=== PATIENT | female | born 1985 | race Caucasian/White ===

== ENCOUNTER 2020-01-19 08:54 | Emergency (ER) | payer MEDICAID, SELFPAY ==
--- NOTE | ~2020-01-19 | XR_ITS ---
EXAMINATION: XR chest 1V INDICATION: Cough TECHNIQUE: PA COMPARISON: 03/06/2019 FINDINGS: There are minimal airspace opacities of the lung bases. No pleural effusion or pneumothorax is identified. The cardiomediastinal silhouette is normal. Contrast from earlier CT partially opacif ies the urinary tract. IMPRESSION: 1. Minimal bibasilar airspace opacity, consistent with atelectasis versus pneumonia. Reviewed, dictated and finalized at location A. IMPRESSION: 1. Minimal bibasilar airspace opacity, consistent with atelectasis versus pneum onia.
--- NOTE | ~2020-01-19 | CT_ITS ---
EXAMINATION: CT abdomen pelvis w con INDICATION: Lower abdominal pain TECHNIQUE: Computed tomographic images of the abdomen and pelvis were obtained after the administrati on of 100 cc of Omnipaque 350 intravenous contrast. The dose-length product (DLP) was 183.71 mGy-cm. Automated exposure control and iterative reconstruction technique were employed. COMPARISON: 03/07/2019 FINDINGS: There is a stable 8 mm nodule of the left lower lobe, likely old granulomatous disease. Pat dimitri groundglass opacities are present in the lower lobes, left greater than right. The liver, spleen, pancreas, gallbladder, and adrenal glands are normal. The kidneys are unremarkable. No pathologicall y enlarged abdominal or pelvic lymph nodes are identified. There is no free intraperitoneal gas or ev idence of bowel obstruction. IMPRESSION: 1. No CT correlate for the patient's symptoms. 2. Patchy groundglass opacities of the lower lobes, likely infectious or inflammatory. Reviewed, dictated and finalized at location A. IMPRESSION: 1. No CT correlate for the patient's symptoms. 2. Patchy groundglass opacities of the lower lobes, likely infectious or inflam matory.
[2020-01-19 08:57] VITALS: BP 133/94; PULSE 83; RESP 21; TEMP 36.9; O2SAT 97
[2020-01-19 09:21] LABS: Basophils Absolute Auto 0.1 K/mm3 (0.0-0.1); Basophils Percent Auto 0.5 % (0.2-1.2); Eosinophils Absolute Auto 0.3 K/mm3 (0-0.3); Eosinophils Percent Auto 2.6 % (0-4.4); Hematocrit 43.2 % (37.0-47.0); Hemoglobin 14.9 g/dL (12.0-15.0); Immature Granulocyte Absolute 0.03 K/mm3 (0.00-0.031); Immature Granulocyte Percent A 0.3 % (0-0.5); Lymphocytes Absolute Auto 4.54 K/mm3 (0.9-3.2); Lymphocytes Percent Auto 39.8 % (18.3-44.2); Mean Corpuscular HGB Conc 34.5 g/dl (32-36); Mean Corpuscular Hemoglobin 32.5 pg (26-34); Mean Corpuscular Volume 94.3 fl (80-100); Mean Platelet Volume 11.9 fl (7.4-10.4); Monocytes Absolute Auto 0.8 K/mm3 (0.1-0.6); Monocytes Percent Auto 7.4 % (2.6-8.5); Neutrophils Absolute Auto 5.6 K/mm3 (1.3-6.7); Neutrophils Percent Auto 49.4 % (45.5-73.1); Platelet Count Result 230 k/mm3 (150-375); Red Blood Count 4.58 M/mm3 (4.2-5.4); Red Cell Distribution Width 12.5 % (11.5-14.5); White Blood Count 11.4 K/mm3 (4.5-10.0)
[2020-01-19 09:33] LABS: Alanine Aminotransferase 24 U/L (4-35); Albumin Level 3.8 g/dL (3.5-5.1); Alkaline Phosphatase 107 U/L (38-126); Anion Gap 9.9 mmol/L (7-16); Aspartate Amino Transferase 48 U/L (14-36); Bilirubin,Total 0.7 mg/dL (0.2-1.3); Blood Urea Nitrogen 8 mg/dL (7-17); Calcium 8.9 mg/dL (8.4-10.2); Carbon Dioxide 29 mmol/L (22-30); Chloride 101 mmol/L (98-107); Estimated CRCL calculation 108 ml/min; Estimated Glomerular Filt Rate > 60; Glucose 101 mg/dL (65-105); Lipase 15 U/L (23-300); Potassium 2.9 mmol/L (3.4-5.0); Sodium 137 mmol/L (137-145)
--- NOTE | 2020-01-19 09:52 | PC.NURSE ---
Pt requesting water in order to provide U/A, discussed to remain NPO until testing back. Pt verbalized understanding. Will cont to try to void, declined straight cath at this time.
--- NOTE | 2020-01-19 09:57 | ED.ABDPAIN ---
HPI - Abdominal Pain General Chief Complaint: Abdominal Pain Stated Complaint: abd pain Time Seen by Provider: 01/19/20 09:30 Source: patient Mode of arrival: ambulatory Limitations: no limitations History of Present Illness HPI narrative: This patient is a 34 year old female who presents for evaluation of lower abdominal pain and difficulty urinating. Patient states she has long history of difficulty urinating. Over the past couple weeks she has intermittent lower abdominal pain but her pain has resolved at this moment. She reports lower abdominal pressure as if she need to urinate she has is unable. She was able to urinate this morning. She denies nausea, vomiting, back pain, diarrhea or fever. She also reports cough and congestion, so she wonders if she has bronchitis. Related Data Home Medications Medication Instructions Recorded Confirmed clonazepam 01/19/20 paroxetine HCl [Paxil] 20 mg PO QAM 01/19/20 quetiapine [Seroquel XR] 150 mg PO HS 01/19/20 Allergies Allergy/AdvReac Type Severity Reaction Status Date / Time prochlorperazine Allergy Intermediate Swelling Verified 01/19/20 09:02 trazodone Allergy Intermediate legs seize Verified 01/19/20 09:02 up Review of Systems Review of Systems: All systems reviewed & are unremarkable except as noted in HPI and below Constitutional: Constitutional: Denies chills and Denies fever(s) ENT: Reports nasal congestion Cardiovascular: Cardiovascular: Denies chest pain Respiratory: Respiratory: Reports cough and Reports wheezing Gastrointestinal: Gastrointestinal: Reports abdominal pain, Denies diarrhea, Denies nausea and Denies vomiting Genitourinary: Genitourinary: Reports urinary frequency and Reports nocturia Musculoskeletal: Musculoskeletal: Denies back pain [facility] Past Medical History Medical History (Updated 01/19/20 @ 11:40 by Agnes Hendrix MD) Bronchitis C. difficile colitis Surgical History Surgical History (Updated 01/19/20 @ 10:00 by Agnes Hendrix MD) No significant past surgical history Social History Social History (Updated 01/19/20 @ 10:00 by Agnes Hendrix MD) Smoking packs per day: 1 Smoking cigarettes per day: 20.0 Smoking status: Current every day smoker Gender identity (if verbalized by the patient): Female Exam Narrative: Exam Narrative: GENERAL: Well-appearing, well-nourished, and in no acute distress. HEAD: Normocephalic, atraumatic EYES: PERRLA and EOMI, conjunctiva clear without discharge THROAT:Mucous membranes moist, Oropharynx normal without erythema, exudate, peritonsillar swelling or fluctuance NECK: Supple, without lymphadenopathy or mass RESPIRATORY: No respiratory distress, Airway patent, Respirations non-labored, Clear to auscultation without rales, rhonchi or wheeze HEART: Regular rate and rhythm. No murmur heard. Normal peripheral pulses. ABDOMEN: Soft, bilateral lower abdominal tenderness, nondistended, normal active bowel sounds. No masses. No rebound or guarding, No organomegaly. EXTREMITIES: No edema, normal strength with full range of motion. SKIN: Warm, dry, normal color without rash NEURO: Alert and oriented x3. CN 2-12 grossly intact. No focal deficits. PSYCH: Normal mood and affect. Course Reevaluation(s) Reevaluation #1: I Discussed with patient that she will be started on antibiotics for UTI And pneumonia. She will also be swabbed for COVID. HEr PCP is a Dr. Quita Erickson. Patient is on seroquel and they recently increased her dose. I explained this may cause her urinary retention and she will decrease dose Date: 01/19/20 Time: 11:38 Vital Signs Vital signs: Vital Signs Temperature 98.5 F 01/19/20 08:57 Pulse Rate 83 01/19/20 08:57 Respiratory Rate 21 H 01/19/20 08:57 Blood Pressure 133/94 H 01/19/20 08:57 Pulse Oximetry 97 01/19/20 08:57 Temperature 98.5 F 01/19/20 08:57 Pulse Rate 85 01/19/20 12:23 Respiratory Rate 17
--- NOTE | 2020-01-19 10:44 | PC.NURSE ---
Pt to CT scan via stretcher.
[2020-01-19] MEDS: POTASSIUM CHLORIDE 20 MEQ PACKET (FOR LIQUID) 40 MEQ PO (10:46)
--- NOTE | 2020-01-19 10:46 | PC.NURSE ---
Pt trying to use RR again to provide urine sample, if unable to void will allow straight cath.
[2020-01-19] MEDS: ALBUTEROL SULFATE (*SP) AEROSOL 1 PUFF 2 PUFF INHALATION (10:59)
[2020-01-19 11:02] VITALS: BP 138/88; PULSE 91; RESP 17; O2SAT 100
[2020-01-19 11:26] LABS: Add Urine Microscopic? YES; Appearance Urine Clear (Clear); Bacteria Urine Trace /hpf; Bilirubin Urine Negative (Negative); Blood Urine Negative (Negative); Color Urine Yellow (Yellow); Glucose Urine UA Negative (Negative); Ketones Urine Negative (Negative); Leukocyte Esterase Ur 1+ LEU/UL (Negative); Nitrate Urine Positive (Negative); Protein Urine Negative (Negative); Specific Grav Ur 1.013 (1.001-1.035); Squamous Epithelial Cell Urine Occasional /hpf (Few); Transitional Epi Cells Urine Rare /hpf (None Seen); Urobilinogen Urine Negative mg/dL (<2.0)
[2020-01-19 12:23] VITALS: BP 150/87; PULSE 85; RESP 17; O2SAT 97
[2020-01-19 19:35] LABS: SARS-CoV-2 RNA PCR Negative
== END 2020-01-19 12:24 | disposition home or self-care (01) ==
PROVIDERS: Orthopaedic Surgery; Emergency Provider General Practice
DX: N39.0 Urinary tract infection, site not specified (principal); R33.9 Retention of urine, unspecified; J18.9 Pneumonia, unspecified organism; Z20.828 Contact with and (suspected) exposure to other viral communicable diseases; F17.210 Nicotine dependence, cigarettes, uncomplicated
CPT/HCPCS: 36415; 51701; 71045; 74177; 80053; 81001; 81025; 83690; 85025; 87077; 87086; 87088; 87186; 87635; 99284; A9270; C9803; Q9967; U0003

== ENCOUNTER 2020-03-01 09:50 | Emergency (ER) | payer MEDICAID, SELFPAY ==
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
[2020-03-01 09:59] VITALS: BP 111/68; PULSE 98; RESP 18; TEMP 36.4; O2SAT 96
--- NOTE | 2020-03-01 10:52 | PC.NURSE ---
PT IN RADIOLOGY WILL MEDICATE UPON RETURN PER PROVIDER ORDER, PT HAS ATTEMPTED UA PRIOR TO LEAVING, UNSUCCESSFUL, WILL ATTEMPT AGAIN UPON RETURN.
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
[2020-03-01] MEDS: KETOROLAC 30 MG/ML VIAL (*BKC) IM (11:11)
[2020-03-01 11:12] VITALS: BP 117/68; PULSE 78; RESP 16; O2SAT 100
[2020-03-01 12:05] VITALS: BP 110/64; PULSE 78; RESP 16; O2SAT 100
== END 2020-03-01 12:07 | disposition home or self-care (01) ==
PROVIDERS: Emergency Provider General Practice
DX: S60.221A Contusion of right hand, initial encounter (principal); S10.91XA Abrasion of unspecified part of neck, initial encounter; M25.462 Effusion, left knee; Y04.0XXA Assault by unarmed brawl or fight, initial encounter
CPT/HCPCS: 73130; 73562; 81025; 96372; 99284; J1885

== ENCOUNTER 2020-03-23 18:07 | Emergency (ER) | payer MEDICAID, SELFPAY ==
--- NOTE | 2020-03-23 18:33 | PC.NURSE ---
Pt to intake desk and states Ill come back tomorrow
== END 2020-03-23 18:33 | disposition left against medical advice (07) ==
LOC: ANHED 19:10
DX: Z53.21 Procedure and treatment not carried out due to patient leaving prior to being seen by health care provider (principal)
CPT/HCPCS: 99199

== ENCOUNTER 2020-09-19 13:43 | Emergency (ER) | payer MEDICAID, SELFPAY ==
--- NOTE | ~2020-09-19 | US_ITS ---
EXAMINATION: US right upper quadrant EXAM DATE: 09/19/2020 15:57 INDICATION: Transaminitis. TECHNIQUE: Multiple grayscale and Doppler images of the abdomen right upper quadrant were obtained (kenyatta y a technologist who performed the scan) and subsequently reviewed. There is no prior study for tatum colindres. FINDINGS: The pancreatic head and body are normal in appearance. The pancreatic tail is not visualized. There is echogenic liver parenchyma, hepatic steatosis. Small region focal fatty sparing in characteristi c location adjacent to gallbladder. There is no evidence of intrahepatic biliary duct dilation. Por adriana venous flow was seen in the hepatopedal, normal direction and has normal Doppler waveform. No ri ght-sided hydronephrosis. Common bile duct measures 6 mm, which is normal. Gallbladder is only mildly distended, with some gall bladder sludge but no cholelithiasis. Normal wall thickness and no pericholecystic fluid. Technologi st performing exam reports patient did not demonstrate sonographic Shore's sign. Please note that t his sign is less reliable in patients who have received pain medication. IMPRESSION: 1. Hepatic steatosis, focal fatty sparing. 2. Gallbladder sludge. Reviewed, dictated and finalized at location A.
[2020-09-19 13:48] VITALS: BP 114/94; PULSE 94; RESP 18; TEMP 36.1; O2SAT 98
[2020-09-19 14:01] LABS: Basophils Absolute Auto 0.1 K/mm3 (0.0-0.1); Basophils Percent Auto 0.8 % (0.2-1.2); Eosinophils Absolute Auto 0.1 K/mm3 (0-0.3); Eosinophils Percent Auto 0.5 % (0-4.4); Hematocrit 50.5 % (37.0-47.0); Hemoglobin 17.7 g/dL (12.0-15.0); Immature Granulocyte Absolute 0.05 K/mm3 (0.00-0.031); Immature Granulocyte Percent A 0.4 % (0-0.5); Lymphocytes Absolute Auto 3.55 K/mm3 (0.9-3.2); Lymphocytes Percent Auto 29.5 % (18.3-44.2); Mean Corpuscular Hemoglobin 33.6 pg (26-34); Mean Corpuscular Volume 95.8 fl (80-100); Mean Platelet Volume 11.4 fl (7.4-10.4); Monocytes Absolute Auto 0.6 K/mm3 (0.1-0.6); Monocytes Percent Auto 4.8 % (2.6-8.5); Neutrophils Absolute Auto 7.7 K/mm3 (1.3-6.7); Platelet Count Result 264 k/mm3 (150-375); Red Blood Count 5.27 M/mm3 (4.2-5.4); Red Cell Distribution Width 12.2 % (11.5-14.5)
[2020-09-19 14:12] LABS: Alanine Aminotransferase 272 U/L (4-35); Albumin Level 4.3 g/dL (3.5-5.1); Alkaline Phosphatase 198 U/L (38-126); Anion Gap 5 mmol/L (8-16); Aspartate Amino Transferase 252 U/L (14-36); Bilirubin,Total 1.3 mg/dL (0.2-1.3); Blood Urea Nitrogen 3 mg/dL (7-17); Calcium 9.3 mg/dL (8.4-10.2); Carbon Dioxide 30 mmol/L (22-30); Chloride 104 mmol/L (98-107); Estimated CRCL calculation 79 ml/min; Estimated Glomerular Filt Rate > 60; Glucose 126 mg/dL (65-105); Lipase 100 U/L (23-300); Potassium 3.9 mmol/L (3.4-5.0); Sodium 139 mmol/L (137-145)
[2020-09-19 15:32] VITALS: BP 128/87; PULSE 69; RESP 15; O2SAT 98
--- NOTE | 2020-09-19 15:40 | PC.NURSE ---
Unsuccessful IV attempt x 2, pt going to u/s at this time (via w/c).
--- NOTE | 2020-09-19 15:43 | ED.NAVMDI ---
HPI - Nausea/Vomiting/Diarrhea General Chief complaint: Nausea/Vomiting/Diarrhea Stated complaint: vomiting diarrhea Time Seen by Provider: 09/19/20 15:16 History of Present Illness HPI Narrative: Patient is a 35-year-old female who presents ER with nausea vomiting diarrhea. Ongoing over the last week. Associated black stools after drinking Pepto-Bismol. Diarrhea subsided but patient still having epigastric pain and nausea/vomiting. Denies fevers or chills or sweats. Had recently exited alcohol rehab. Has not been drinking alcohol. Cannot find any alleviating factors. Not particularly worsened by eating food. Related Data Home Medications Medication Instructions Recorded Confirmed clonazepam 01/19/20 paroxetine HCl [Paxil] 20 mg PO QAM 01/19/20 quetiapine [Seroquel XR] 150 mg PO HS 01/19/20 Allergies Allergy/AdvReac Type Severity Reaction Status Date / Time prochlorperazine Allergy Intermediate Swelling Verified 09/19/20 15:41 trazodone Allergy Intermediate legs seize Verified 09/19/20 15:41 up Review of Systems Review of Systems: All systems reviewed & are unremarkable except as noted in HPI and below Constitutional: Constitutional: Denies chills, Denies fever(s) and Denies weakness ENT: Denies nasal congestion and Denies sore throat Cardiovascular: Cardiovascular: Denies chest pain, Denies rapid heart rate and Denies radiating jaw, neck or arm pain Respiratory: Respiratory: Denies cough and Denies dyspnea Gastrointestinal: Gastrointestinal: Reports abdominal pain, Denies constipation, Reports diarrhea, Reports nausea and Reports vomiting Genitourinary: Genitourinary: Denies nocturia and Denies dysuria [facility] Past Medical History Medical History (Updated 09/19/20 @ 18:27 by Steve Tse MD) Bronchitis C. difficile colitis Hepatitis C Surgical History Surgical History (Updated 01/19/20 @ 10:00 by Agnes Hendrix MD) No significant past surgical history Social History Social History (Updated 01/19/20 @ 10:00 by Agnes Hendrix MD) Smoking packs per day: 1 Smoking cigarettes per day: 20.0 Smoking status: Current every day smoker Gender identity (if verbalized by the patient): Female Exam Narrative: Exam Narrative: GENERAL: Well-appearing, well-nourished, and in no acute distress. HEAD: Normocephalic, atraumatic. ENT: Mucous membranes moist. CHEST: Clear to auscultation. No respiratory distress. HEART: Regular rate and rhythm. Normal peripheral pulses. ABDOMEN: Soft, mild epigastric/RUQ tenderness without guarding, nondistended. Guaiac negative stool on RADHA and without gross blood. EXTREMITIES: Normal range of motion. No edema. SKIN: Warm, dry, no rash. NEURO: Alert and oriented x3. PSYCH: Normal mood and affect. Course Course Emergency Course: Hydrated. No emesis here. Discharge with antiemetics. Follow-up with PCP. [facility] may have to find somebody over there he takes that insurance as well. She is aware of this. Vital Signs Vital signs: Vital Signs Temperature 96.9 F L 09/19/20 13:48 Pulse Rate 94 09/19/20 13:48 Respiratory Rate 18 09/19/20 13:48 Blood Pressure 114/94 H 09/19/20 13:48 Pulse Oximetry 98 09/19/20 13:48 Temperature 96.9 F L 09/19/20 13:48 Pulse Rate 70 09/19/20 16:56 Respiratory Rate 17 09/19/20 16:56 Blood Pressure 129/84 09/19/20 16:56 Pulse Oximetry 98 09/19/20 16:56 MDM - Nausea/Vomiting/Diarrhea Lab Data Result diagrams: 09/19/20 13:55 09/19/20 13:55 Labs: Lab Results 09/19/20 09/19/20 Range/Units 13:55 13:55 WBC 12.0 H (4.5-10.0) K/mm3 RBC 5.27 (4.2-5.4) M/mm3 Hgb 17.7 H (12.0-15.0) g/dL Hct 50.5 H (37.0-47.0) % MCV 95.8 (80-100) fl MCH 33.6 (26-34) pg MCHC 35.0 (32-36) g/dl RDW 12.2 (11.5-14.5) % Plt Count 264 (150-375) k/mm3 MPV 11.4 H (7.4-10.4) fl Immature Gran % (Auto) 0.4 (
--- NOTE | 2020-09-19 15:45 | PC.NURSE ---
Called [facility]AL w/ vascular access, no answer at this time, did not leave VM.
[2020-09-19 15:46] VITALS: BP 128/87; PULSE 69; RESP 15; O2SAT 98
[2020-09-19] MEDS: MORPHINE SULFATE (*CRX) 4 MG/ML INJ IV PUSH (16:50)
[2020-09-19] MEDS: SODIUM CHLORIDE 0.9% IV 1,000 ML 999 ML IV CONT (16:50)
[2020-09-19] MEDS: ONDANSETRON INJ 4 MG/2 ML VIAL IV PUSH (16:50)
[2020-09-19 16:56] VITALS: BP 129/84; PULSE 70; RESP 17; O2SAT 98
--- NOTE | 2020-09-19 16:56 | PC.NURSE ---
Pt unable to urinate, declines straight cath, will cont to try, fluids infusing at this time.
[2020-09-19 18:25] VITALS: BP 130/89; PULSE 66; RESP 15; O2SAT 99
[2020-09-19 18:58] VITALS: BP 132/82; PULSE 74; RESP 15; O2SAT 97
== END 2020-09-19 18:59 | disposition home or self-care (01) ==
PROVIDERS: Emergency Provider Emergency Medicine
DX: K52.9 Noninfective gastroenteritis and colitis, unspecified (principal); F17.219 Nicotine dependence, cigarettes, with unspecified nicotine-induced disorders; Z86.19 Personal history of other infectious and parasitic diseases
CPT/HCPCS: 36415; 76705; 80053; 83690; 85025; 96361; 96374; 96375; 99284; J2270; J2405; J7030

== ENCOUNTER 2020-10-11 16:59 | Emergency (ER) | payer MEDICAID, SELFPAY ==
[2020-10-11 17:05] VITALS: BP 115/74; PULSE 75; RESP 18; TEMP 36.4; O2SAT 97
--- NOTE | 2020-10-11 17:29 | ED.SKABFB ---
HPI - Skin/Abscess/Foreign Bdy General Chief complaint: Skin/Abscess/Foreign Body Stated complaint: rash Source: patient and RN notes reviewed Limitations: no limitations History of Present Illness HPI narrative: The patient, who is a smoker/nondrinker, presents with several complaints. She notes about a 1 week history of urinary dysuria, urgency, and hesitancy-like prior urinary tract infection. No fever measured, vomiting/diarrhea, abdominal pain pain, vaginal discharge,frequency, blood , low back pain, malodor. Symptoms are mild most noticeable with micturition. She also mentions she has 1/2-week history of pink, pruritic skin eruption that began while doing yard cleanup. Symptoms are mild worse with scratching, resulting some excoriation on hands and chin. No streaking, discharge, known allergens Related Data Home Medications Medication Instructions Recorded Confirmed clonazepam 01/19/20 paroxetine HCl [Paxil] 20 mg PO QAM 01/19/20 quetiapine [Seroquel XR] 150 mg PO HS 01/19/20 Allergies Allergy/AdvReac Type Severity Reaction Status Date / Time prochlorperazine Allergy Intermediate Swelling Verified 09/19/20 15:41 trazodone Allergy Intermediate legs seize Verified 09/19/20 15:41 up Review of Systems Review of Systems: Narrative: General/Constitutional: No weight loss,fever Eyes: N0: Redness,discharge Ears/Nose/Throat: No: Epistaxis,ear discharge Respiratory: Denies: Hemoptysis Gastrointestinal: No Vomiting, Bleeding-rectal Skin: No Lumps, eruption Neurologic: No Focal Weakness,Sz Hematologic: Denies: Petechiae/Purpura Psychiatric: No: Suicida ideationl All Other Systems: Reviewed and Negative [facility] Past Medical History Medical History (Updated 10/11/20 @ 17:33 by Bernardo Jung MD) Bronchitis C. difficile colitis Hepatitis C Surgical History Surgical History (Updated 01/19/20 @ 10:00 by Agnes Hendrix MD) No significant past surgical history Social History Social History (Updated 01/19/20 @ 10:00 by Agnes Hendrix MD) Smoking packs per day: 1 Smoking cigarettes per day: 20.0 Smoking status: Current every day smoker Gender identity (if verbalized by the patient): Female Comments At time of signature, agree with nursing past medical, surgical, social and family history. There is no relevant family history pertinent to the presenting complaint Exam Narrative: Exam Narrative: General Appearance: Well appearing, No distress Skin: Warm, Dry; blanching mostly macular & maculopapular eruption on the distal forearms, proximal trunk and face EYE: PERRLA, Conjunctiva clear Ears: External ear normal Nose: Normal nose Mouth/Throat: Normal appearing, Normal lips Neck: Supple Respiratory: Airway patent, No respiratory distress GI: soft, nontender Abdomen: Soft, Non-tender, Musculoskeletal: Full ROM Neurological: A&O x3, CN II-X intact Psychiatric: Normal mood, Normal affect Course Vital Signs Vital signs: Vital Signs Temperature 97.6 F 10/11/20 17:05 Pulse Rate 75 10/11/20 17:05 Respiratory Rate 18 10/11/20 17:05 Blood Pressure 115/74 10/11/20 17:05 Pulse Oximetry 97 10/11/20 17:05 Temperature 97.6 F 10/11/20 17:05 Pulse Rate 75 10/11/20 17:05 Respiratory Rate 18 10/11/20 17:05 Blood Pressure 115/74 10/11/20 17:05 Pulse Oximetry 97 10/11/20 17:05 MDM - Skin/Abscess/Foreign Bdy Lab Data Labs: Urine Glucose Negative Reference Range: Negative Urine Bilirubin Negative Reference Range: Negative Urine Ketone Negative Reference Range: Negative Urine Specific [place] 1.010 Reference Range:1.001-1.035 Urine Blood
== END 2020-10-11 17:37 | disposition home or self-care (01) ==
PROVIDERS: Emergency Provider Emergency Medicine
DX: L25.5 Unspecified contact dermatitis due to plants, except food (principal); R30.0 Dysuria; Z86.19 Personal history of other infectious and parasitic diseases; F17.210 Nicotine dependence, cigarettes, uncomplicated
CPT/HCPCS: 81003; 99213; G0463

== ENCOUNTER 2020-11-14 16:04 | Emergency (ER) | payer MEDICAID, SELFPAY ==
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
[2020-11-14 16:19] VITALS: BP 121/96; PULSE 98; RESP 18; TEMP 36.8; O2SAT 95
== END 2020-11-14 16:28 | disposition home or self-care (01) ==
PROVIDERS: Emergency Provider Nurse Practitioner
DX: R51.9 Headache, unspecified (principal); F17.210 Nicotine dependence, cigarettes, uncomplicated; Z86.19 Personal history of other infectious and parasitic diseases
CPT/HCPCS: 99212; G0463

== ENCOUNTER 2021-06-24 10:04 | Emergency (ER) | payer MEDICAID, SELFPAY ==
[2021-06-24 10:44] VITALS: BP 116/81; PULSE 89; RESP 20; TEMP 36.3; O2SAT 96
--- NOTE | 2021-06-24 10:55 | ED.URI ---
HPI - URI/Sore Throat General Chief Complaint: Upper Respiratory Infection Stated Complaint: Rt ear pain,nasal congestion,throat irritation Time Seen by Provider: 06/24/21 10:55 Source: patient Mode of arrival: ambulatory Limitations: no limitations History of Present Illness HPI Narrative: María is a 35-year-old female [facility] Patient complains of right ear popping and feeling clogged. Patient complains of sore throat pain. Patient states this has been going on for 2 weeks. She also complains of mild nasal congestion that comes and goes. She is been taking [id number] sinus medication. She has no allergies. MD elicited complaint: sore throat Related Data Home Medications Medication Instructions Recorded Confirmed clonazepam 0.5 mg BID 01/19/20 06/24/21 quetiapine [Seroquel XR] 150 mg PO HS 01/19/20 06/24/21 escitalopram oxalate 20 mg DAILY 11/14/20 06/24/21 Allergies Allergy/AdvReac Type Severity Reaction Status Date / Time prochlorperazine Allergy Intermediate Swelling Verified 06/24/21 11:06 trazodone Allergy Intermediate legs seize Verified 06/24/21 11:06 up Review of Systems Review of Systems: CONSTITUTIONAL: Denies body aches, fever, chills, or sweats. EYES: Denies visual changes, redness, or discharge. ENT: Denies rhinorrhea,+ congestion+, sore throat, + right otalgia. CARDIOVASCULAR: Denies chest pain, palpitations, or edema. RESPIRATORY: Denies cough or dyspnea. GASTROINTESTINAL: Denies abdominal pain, nausea, vomiting, or diarrhea. GENITOURINARY: Denies dysuria or hematuria. SKIN: Denies rash, itching, or wounds. MUSCULOSKELETAL: Denies back pain, joint pain, or myalgia. NEUROLOGIC: Denies headache, numbness, tingling, or weakness. PSYCH: Denies depression or anxiety. All systems reviewed & are unremarkable except as noted in HPI and below PMFSH Past Medical History Medical History Bronchitis C. difficile colitis Hepatitis C Surgical History Surgical History No significant past surgical history Social History Social History Smoking packs per day: 1 Smoking cigarettes per day: 20.0 Smoking status: Current every day smoker Gender identity (if verbalized by the patient): Female Comments At time of signature, I have reviewed and agree with nursing past medical, surgical, social and family history unless otherwise noted. Please see nursing chart for further information. There is no relevant family history pertinent to the presenting complaint Exam Narrative: GENERAL: Well-appearing, well-nourished, and in no acute distress. HEAD: Normocephalic, atraumatic. EYES: EOMI. No redness or drainage. Conjunctivae normal. ENT: Mucous membranes pink and moist. Nares clear. No rhinorrhea. Right tympanic membrane is bulging without erythema. Left tympanic membrane has mild bulging no erythema. Posterior pharynx is erythemic without edema or exudate Uvula midline. NECK: Normal AROM. Supple. No lymphadenopathy. CHEST: No respiratory distress. Clear to auscultation. MUSCULOSKELETAL: No bony tenderness. EXTREMITIES: Normal range of motion. No edema. SKIN: Warm, dry, no rash. Capillary refill normal. Normal skin turgor. NEURO: No focal deficits. Alert and oriented x3. Gait steady. PSYCH: Normal affect. No signs of depression or anxiety. Course Course Emergency Course: Patient has a 2-week history of nasal congestion and sore throat pain. And right ear feeling like it is clogged with a popping sensation. A rapid strep test will be completed. Patient will be treated with a Sudafed-based stent and Flonase. Level of Care: Express Care Visit Vital Signs Vital signs: Vital Signs Temperature 36.3 C L 06/24/21 10:44 Pulse Rate 89 06/24/21 10:44 Respiratory Rate 20 01/0
== END 2021-06-24 11:20 | disposition home or self-care (01) ==
PROVIDERS: Emergency Provider Nurse Practitioner Family
DX: J02.9 Acute pharyngitis, unspecified (principal); F17.210 Nicotine dependence, cigarettes, uncomplicated; Z86.19 Personal history of other infectious and parasitic diseases
CPT/HCPCS: 87081; 87880; 99213; G0463

== ENCOUNTER 2021-12-08 12:37 | Emergency (ER) | payer MEDICAID, SELFPAY ==
[2021-12-08 13:02] VITALS: BP 120/80; PULSE 99; RESP 16; TEMP 37; O2SAT 94
--- NOTE | 2021-12-08 13:19 | ED.SOB ---
HPI - SOB/Dyspnea General Chief Complaint: Urogenital-Female Stated Complaint: SOB Source: patient Mode of arrival: ambulatory Limitations: no limitations History of Present Illness HPI Narrative: 36 year old female presents to [facility] with complaints of shortness of breath and productive cough X 1 week. Patient reports that she also is having difficulty urinating at times. Patient is a smoker, patient reports that she smokes approximately1 pack/week. Patient reports that she recently was discharged from [facility] for alcohol detox. Patient reports that she did have 2 drinks of twisted tea yesterday and 1 drink of twisted tea today. Patient denies drug use. Patient reports that she is currently being worked up for possible leukemia and they are attempting to schedule her appointment with hematology. Patient reports history of chronic bronchitis. Patient denies sick contacts. Patient denies recent travel. Patient denies nausea, vomiting, diarrhea, sore throat or ear pain. MD elicited complaint: shortness of breath and cough Pertinent past history: other (chronic bronchitis ) Onset (ago): week(s) (1) Relieving factors: nothing Treatment prior to arrival: none Related Data Home Medications Medication Instructions Recorded Confirmed clonazepam 0.5 mg tablet 0.5 mg BID 01/19/20 06/24/21 quetiapine 150 mg tablet,extended 150 mg PO HS 01/19/20 06/24/21 release 24 hr (Seroquel XR) escitalopram oxalate 20 mg tablet 20 mg DAILY 11/14/20 06/24/21 Allergies Allergy/AdvReac Type Severity Reaction Status Date / Time prochlorperazine Allergy Intermediate Swelling Verified 06/24/21 11:06 trazodone Allergy Intermediate legs seize Verified 06/24/21 11:06 up Review of Systems Constitutional: Constitutional: Denies chills, Denies fatigue, Denies fever(s) and Denies weakness ENT: Denies vertigo and Denies dizziness Cardiovascular: Cardiovascular: Denies chest pain, Denies rapid heart rate, Denies radiating jaw, neck or arm pain and Denies slow heart rate Respiratory: Respiratory: Denies chest congestion, Reports cough, Reports dyspnea and Denies wheezing Gastrointestinal: Gastrointestinal: Denies abdominal pain, Denies diarrhea, Denies nausea and Denies vomiting Integumentary/Breasts: Skin/Breast: Denies rash Neurologic: Denies dizziness, Denies numbness and Denies weakness [facility] Past Medical History Medical History Bronchitis C. difficile colitis Hepatitis C Surgical History Surgical History No significant past surgical history Social History Social History Smoking packs per day: 1 Smoking cigarettes per day: 20.0 Smoking status: Current every day smoker Gender identity (if verbalized by the patient): Female Comments At time of signature, I agree with nursing past medical, surgical, social and family history. There is no relevant family history pertinent to the presenting complaint. Exam Const: Orientation/consciousness: patient oriented x3 Other: Patient tearful at times, tremoring noted to hands, gait appears unsteady at times, patient appears intoxicated Eyes: Other: Mild erythema noted to bilateral conjunctive eye Neck: Neck: normal visual inspection Resp: Effort & Inspection: normal respiratory effort and not labored Auscultation: clear to auscultation bilaterally, no crackles, no rales and no rhonchi Other: Occasional wet cough noted, lungs are clear. No dyspnea noted; pulse ox ranging from 86-94% Cardio: Rate: regular rate Rhythm: regular rhythm GI: Inspection: distended GI Palp: Yes Soft to palpation Back/Spine/Pelvis: Back: no CVA tenderness Skin: General skin exam: normal color Rashes: no rashes Wounds: no wounds Neuro: General: patient oriented x3 and moves all extremities Cranial nerves: Yes [place]
== END 2021-12-08 13:14 | disposition short-term general hospital (02) ==
PROVIDERS: Emergency Provider Nurse Practitioner Family
DX: R79.81 Abnormal blood-gas level (principal); R06.00 Dyspnea, unspecified; Z20.822 Contact with and (suspected) exposure to COVID-19; F17.210 Nicotine dependence, cigarettes, uncomplicated; Z86.19 Personal history of other infectious and parasitic diseases
CPT/HCPCS: 81003; 81025; 87426; 99215; C9803; G0463

== ENCOUNTER 2021-12-08 13:38 | Inpatient (IN) | payer MEDICAID, SELFPAY ==
[2021-12-08] VITALS (12 sets, daily range): BP systolic 90–110; BP diastolic 67–73; PULSE 65–92; RESP 14–19; TEMP 36.6–37; O2SAT 89–98; BMI 23.0
--- NOTE | ~2021-12-08 | XR_ITS ---
EXAMINATION: XR chest 1V portable INDICATION: Cough and shortness of breath TECHNIQUE: Portable AP chest at 1436 hours COMPARISON: None available FINDINGS: There are airspace opacities of the lung bases and left midlung zone. No pleural effusion o r pneumothorax. The cardiomediastinal silhouette is normal. IMPRESSION: 1. Airspace opacities of the lung bases and left midlung zone suspicious for pneumonia, possible COVI D 19. Reviewed, dictated and finalized at location F. IMPRESSION: 1. Airspace opacities of the lung bases and left midlung zone suspicious for pn eumonia, possible COVID 19.
[2021-12-08 14:40] LABS: Basophils Absolute Auto 0.1 K/mm3 (0.0-0.1); Basophils Percent Auto 0.4 % (0.2-1.2); Eosinophils Absolute Auto 0.3 K/mm3 (0-0.3); Eosinophils Percent Auto 2.4 % (0-4.4); Hematocrit 44.5 % (37.0-47.0); Hemoglobin 15.4 g/dL (12.0-15.0); Immature Granulocyte Absolute 0.05 K/mm3 (0.00-0.031); Immature Granulocyte Percent A 0.4 % (0-0.5); Lymphocytes Absolute Auto 2.99 K/mm3 (0.9-3.2); Lymphocytes Percent Auto 22.1 % (18.3-44.2); Mean Corpuscular HGB Conc 34.6 g/dl (32-36); Mean Corpuscular Hemoglobin 33.3 pg (26-34); Mean Corpuscular Volume 96.1 fl (80-100); Mean Platelet Volume 11.7 fl (7.4-10.4); Monocytes Absolute Auto 0.5 K/mm3 (0.1-0.6); Monocytes Percent Auto 3.7 % (2.6-8.5); Neutrophils Absolute Auto 9.6 K/mm3 (1.3-6.7); Platelet Count Result 173 k/mm3 (150-375); Red Blood Count 4.63 M/mm3 (4.2-5.4); White Blood Count 13.6 K/mm3 (4.5-10.0)
[2021-12-08 14:54] LABS: Alanine Aminotransferase 41 U/L (6-35); Albumin Level 3.7 g/dL (3.5-5.1); Alkaline Phosphatase 120 U/L (38-126); Anion Gap 6 mmol/L (8-16); Aspartate Amino Transferase 78 U/L (14-36); Bilirubin,Total 0.9 mg/dL (0.2-1.3); Blood Urea Nitrogen 4 mg/dL (7-17); Carbon Dioxide 31 mmol/L (22-30); Chloride 99 mmol/L (98-107); Estimated CRCL calculation 106 ml/min; Estimated Glomerular Filt Rate > 60; Glucose 95 mg/dL (65-110); INR 1.1; Potassium 3.4 mmol/L (3.4-5.0); Prothrombin Time 13.8 Seconds (11.1-14.7); Sodium 136 mmol/L (137-145)
--- NOTE | 2021-12-08 14:54 | ED.GENADULT ---
HPI - General Adult General Chief complaint: Upper Respiratory Infection Stated complaint: SOB Time Seen by Provider: 12/08/21 13:47 History of Present Illness HPI narrative: Patient is a 36-year-old female who presents ER with shortness of breath and cough. Reports ongoing for 1 week. Reports thick mucus that comes up. Reports vaccinated against COVID. No known sick contacts but recently in alcohol detox at [place]. Reports body aches. No fevers or chills. Patient found to be hypoxic at urgent care and referred here. Patient reports exertional dyspnea and has trouble getting around her home due to this. No recent vomiting. Denies possible aspiration risk. Related Data Home Medications Medication Instructions Recorded Confirmed clonazepam 0.5 mg tablet 0.5 mg PO BID 01/19/20 12/08/21 escitalopram oxalate 20 mg tablet 20 mg PO DAILY 11/14/20 12/08/21 quetiapine 100 mg tablet 100 mg PO HS 12/08/21 12/08/21 Allergies Allergy/AdvReac Type Severity Reaction Status Date / Time prochlorperazine Allergy Intermediate Swelling Verified 12/08/21 18:27 trazodone Allergy Intermediate legs seize Verified 12/08/21 18:27 up haloperidol [From Haldol] Allergy Swelling Verified 12/08/21 18:27 of Lip/Tongue/Throat Review of Systems Review of Systems: All systems reviewed & are unremarkable except as noted in HPI and below Constitutional: Constitutional: Denies chills, Reports fatigue and Reports weakness Cardiovascular: Cardiovascular: Denies chest pain, Denies rapid heart rate and Denies radiating jaw, neck or arm pain Respiratory: Respiratory: Reports cough, Reports dyspnea and Denies wheezing Gastrointestinal: Gastrointestinal: Denies abdominal pain, Denies nausea and Denies vomiting Genitourinary: Genitourinary: Denies nocturia and Denies dysuria Musculoskeletal: Musculoskeletal: Reports myalgias, Denies arthralgias and Denies joint swelling Neurologic: Denies headache(s), Denies focal weakness and Denies numbness PMFSH Past Medical History Medical History (Updated 12/11/21 @ 07:11 by Steve Tse MD) Alcohol abuse Bloating Bronchitis C. difficile colitis Constipation Hepatitis C Nicotine dependence Surgical History Surgical History No significant past surgical history Family History Family History Other No significant family history Social History Social History (Updated 12/08/21 @ 19:21 by Lu Ramires PA-C) Social History: Surrogate decision maker: Stacy Herrera, grandmother. Code status: Full code. Smoking packs per day: 1 Smoking cigarettes per day: 20.0 Years smoked: 26 Smoking pack-years: 26.00 Smoking status: Current every day smoker Tobacco type: cigarettes Alcohol intake: current Drinks per week: 3 Substance use: former Spiritual care concerns: No Exam Narrative: GENERAL: Well-appearing, well-nourished, and in no acute distress. HEAD: Normocephalic, atraumatic. ENT: Mucous membranes moist. CHEST: Clear to auscultation. No respiratory distress. Frequent coughing. HEART: Regular rate and rhythm. Normal peripheral pulses. ABDOMEN: Soft, nontender, nondistended. EXTREMITIES: Normal range of motion. No edema. SKIN: Warm, dry, no rash. NEURO: Alert and oriented x3. PSYCH: Normal mood and affect. Course Vital Signs Vital signs: Vital Signs Temperature 98.6 F 12/08/21 13:46 Pulse Rate 92 12/08/21 13:46 Respiratory Rate 18 12/08/21 13:46 Blood Pressure 90/73 L 12/08/21 13:46 Pulse Oximetry 95 12/08/21 13:46 Oxygen Delivery Room Air 12/08/21 13:46 Temperature 97.5 F L 12/09/21 05:40 Pulse Rate 70 12/09/21 13:32 Respiratory Rate 16 12/09/21 13:32 Blood Pressure 99/67 L 12/09/21 05:40 Pulse Oximetry 95 12/09/21 13:22 Oxygen Delivery Room Air 12/09/21 13:22 Oxygen Flow Rate
[2021-12-08 14:55] LABS: Partial Thromboplastin Time 33.9 SECONDS (22.3-36.8)
[2021-12-08 14:57] LABS: D Dimer 1.32 ug/mL (<0.48); Lactic Acid Reflex 1.3 mmol/L (0.7-2.0)
[2021-12-08 14:59] LABS: Ethanol < 10 mg/dL (<10)
[2021-12-08 15:09] LABS: NT Pro B Type Natriuretic Pept 1160 pg/mL (5-100); Troponin I < 0.012 ng/mL (0.000-0.034)
[2021-12-08 15:20] LABS: Influenza A QL RT-PCR Negative (Negative); Influenza B QL RT-PCR Negative (Negative); SARS-CoV-2 RNA PCR Negative
[2021-12-08] MEDS: KETOROLAC 30 MG/ML VIAL (*BKC) IV PUSH (15:33)
[2021-12-08] MEDS: SODIUM CHLORIDE 0.9% IV 1,000 ML 125 ML IV CONT (16:50)
--- NOTE | 2021-12-08 17:02 | PC.NURSE ---
report called and given to sierra
[2021-12-08 17:30] LABS: Amphetamine Screen Urine Negative (Negative); Barbiturate Screen Urine Negative (Negative); Benzodiazepines Screen Urine Positive (Negative); Cannabinoid Screen Urine Negative (Negative); Cocaine Screen Urine Negative (Negative); Methadone Screen Urine Negative (Negative); Opiate Screen Urine Negative (Negative); Phencyclidine Screen Urine Negative (Negative)
--- NOTE | 2021-12-08 17:33 | ADMGEN ---
This patient, María Painter, was admitted to [facility] Surg Room 329-01 at 1725. Patient/family oriented to hospital policies and general routines including ID bracelet, bed and alarms, visiting hours, pain management, procedures, bathroom and other care routines, personal items, smoking policy, room service/diet, and visiting hours. Information on how to activate the Rapid Response Team has been discussed. Patient/Family are encouraged to report perceived risks to care and to ask questions if they do not understand what they are told or what they should do.
--- NOTE | 2021-12-08 17:45 | PM.IMHP ---
H&P: HPI History of Present Illness Date/Time: 12/08/21 17:45 Chief Complaint: Cough and shortness of breath. Narrative: This is a 36-year-old female smoker with history of alcohol abuse, asthma, mitral valve prolapse, borderline personality disorder, anxiety, and depression who presented to the emergency department for evaluation of cough and shortness of breath. She has not been feeling well for approximately 1 week with sweats, body aches, cough productive of rust-colored sputum, and pleuritic pain. She has coughed so hard a couple of times that she briefly lost consciousness. Over the last couple of days she has been feeling short of breath as well and she came in today because she is not feeling any better. Last week some of her coworkers were complaining of sore throats but they do not have similar symptoms to her, reportedly. She is vaccinated for COVID and she tested negative for influenza and SARs CoV 2 by PCR today in the ER. Chest x-ray showed airspace opacities of the lung bases and left midlung zone suspicious for pneumonia and she is being admitted in this setting as she does have an oxygen requirement currently. She denies sinus congestion, sore throat, change in smell and taste, exertional chest pain, nausea, vomiting, dysphagia, concerns for aspiration, and diarrhea. Of note she was recently in an inpatient rehab facility for alcohol abuse though unfortunately she has been drinking small amounts since then. She denies withdrawal signs and symptoms. Review of Systems Review of Systems: Twelve systems were reviewed and are negative except for as per HPI. [facility] Past Medical History Medical History (Updated 12/08/21 @ 19:37 by Lu Ramires PA-C) Alcohol abuse Bronchitis C. difficile colitis Hepatitis C Nicotine dependence Surgical History Surgical History No significant past surgical history Family History Family History Other No significant family history Social History Social History (Updated 12/08/21 @ 19:21 by Lu Ramires PA-C) Social History: Surrogate decision maker: Stacy Javier, grandmother. Code status: Full code. Smoking packs per day: 1 Smoking cigarettes per day: 20.0 Years smoked: 26 Smoking pack-years: 26.00 Smoking status: Current every day smoker Tobacco type: cigarettes Alcohol intake: current Drinks per week: 3 Substance use: former Spiritual care concerns: No Meds Home Medications and Allergies Home Medications Medication Instructions Recorded Confirmed Type clonazepam 0.5 mg tablet 0.5 mg PO BID 01/19/20 12/08/21 History escitalopram oxalate 20 mg tablet 20 mg PO DAILY 11/14/20 12/08/21 History quetiapine 100 mg tablet 100 mg PO HS 12/08/21 12/08/21 History Allergies Allergy/AdvReac Type Severity Reaction Status Date / Time prochlorperazine Allergy Intermediate Swelling Verified 12/08/21 18:27 trazodone Allergy Intermediate legs seize Verified 12/08/21 18:27 up haloperidol [From Haldol] Allergy Swelling Verified 12/08/21 18:27 of Lip/Tongue/Throat Vital Signs Vital Signs - 24 hr 12/08/21 13:46 12/08/21 14:10 12/08/21 14:18 Temperature 98.6 F Pulse Rate 92 87 Respiratory Rate 18 19 Blood Pressure 90/73 L 110/70 Pulse Oximetry 95 92 89 L Oxygen Delivery Room Air Room Air Oxygen Flow Rate 12/08/21 16:11 12/08/21 14:20 Temperature Pulse Rate 75 Respiratory Rate 18 Blood Pressure 102/67 Pulse Oximetry 95 95 Oxygen Delivery Nasal Cannula Oxygen Flow Rate 2 Exam Narrative: General: Mildly ill-appearing female sitting up in bed. Weight: 58.9 kg. BMI: 23.0. HEENT: Normocephalic, atraumatic. PERRL, EOMI. Sclerae anicteric. Conjunctiva mildly injected. Tacky mucous membranes. Oropharynx is clear. Neck: Supple. No lymphadenopathy. Respiratory: Respirations are
[2021-12-08] MEDS: HYDROcodone/acetaminophen (*CRX) 5-325 MG TABLET 1 TAB PO (18:58)
[2021-12-08] MEDS: IPRATROPIUM BR 0.02% INH SOLN 0.5 MG/2.5 ML VIAL INHALATION (20:54)
[2021-12-08] MEDS: ALBUTEROL SULFATE NEB 2.5 MG/3 ML INH 5 MG INHALATION (20:54)
[2021-12-08] MEDS: THIAMINE HCL 200 MG/2 ML VIAL 100 MG IV PUSH (21:20)
[2021-12-08] MEDS: QUEtiapine FUMARATE 100 MG TABLET PO (21:21)
[2021-12-08] MEDS: clonazePAM (*CRX) 0.5 MG TABLET PO (21:21)
[2021-12-08] MEDS: KETOROLAC 15 MG/ML VIAL (*BKC) IV PUSH (21:24)
[2021-12-09] VITALS (9 sets, daily range): BP systolic 99; BP diastolic 67; PULSE 64–72; RESP 14–18; TEMP 36.4; O2SAT 95–96
[2021-12-09] MEDS: NICOTINE (*PBKC) 21 MG PATCH 1 PATCH TRANSDERM (00:14)
[2021-12-09] MEDS: ALBUTEROL SULFATE NEB 2.5 MG/3 ML INH 5 MG INHALATION ×3 (02:13→13:21)
[2021-12-09] MEDS: IPRATROPIUM BR 0.02% INH SOLN 0.5 MG/2.5 ML VIAL INHALATION ×3 (02:16→13:21)
[2021-12-09 06:32] LABS: Hematocrit 41.4 % (37.0-47.0); Hemoglobin 13.8 g/dL (12.0-15.0); Immature Platelet Fraction Pct 10.7 % (0.9-11.2); Mean Corpuscular HGB Conc 33.3 g/dl (32-36); Mean Platelet Volume 11.7 fl (7.4-10.4); Platelet Count Result 139 k/mm3 (150-375); Red Blood Count 4.18 M/mm3 (4.2-5.4); White Blood Count 7.7 K/mm3 (4.5-10.0)
[2021-12-09] MEDS: KETOROLAC 15 MG/ML VIAL (*BKC) IV PUSH ×2 (06:38→12:43)
[2021-12-09 06:47] LABS: Alanine Aminotransferase 32 U/L (6-35); Albumin Level 2.8 g/dL (3.5-5.1); Alkaline Phosphatase 88 U/L (38-126); Anion Gap 6 mmol/L (8-16); Aspartate Amino Transferase 63 U/L (14-36); Bilirubin,Total 0.6 mg/dL (0.2-1.3); Blood Urea Nitrogen 6 mg/dL (7-17); Calcium 7.8 mg/dL (8.4-10.2); Carbon Dioxide 27 mmol/L (22-30); Chloride 102 mmol/L (98-107); Estimated CRCL calculation 120 ml/min; Estimated Glomerular Filt Rate > 60; Glucose 105 mg/dL (65-110); Magnesium 1.8 mg/dL (1.6-2.3); Potassium 2.8 mmol/L (3.4-5.0); Sodium 135 mmol/L (137-145)
[2021-12-09] MEDS: POTASSIUM CHLORIDE INJ 40 MEQ in SODIUM CHLORIDE 0.9% IV 500 ML 130 MEQ IVPB (07:15)
[2021-12-09] MEDS: ACETAMINOPHEN 325 MG TABLET 650 MG PO (08:17)
[2021-12-09] MEDS: ESCITALOPRAM OXALATE 10 MG TABLET 20 MG PO (08:20)
[2021-12-09] MEDS: THIAMINE HCL 100 MG TABLET PO (08:20)
[2021-12-09] MEDS: THERAPEUTIC MULTIVITAMINS/MINERALS TAB (*BKC) 1 TABLET PO (08:21)
[2021-12-09] MEDS: FOLIC ACID 1 MG TABLET PO (08:21)
[2021-12-09] MEDS: clonazePAM (*CRX) 0.5 MG TABLET PO (08:24)
[2021-12-09] MEDS: chlordiazePOXIDE (*CRX) 25 MG CAPSULE PO (11:48)
[2021-12-09] MEDS: LORazepam INJ (*CRX) 2 MG/ML VIAL 1 MG IV PUSH (14:03)
--- NOTE | 2021-12-09 14:22 | PM.IMPN ---
Progress Note: A&P Assessment and Plan (1) Pneumonia: Code(s): J18.9 - Pneumonia, unspecified organism Status: Acute Assessment and Plan: Presumed bacterial, community-acquired pneumonia. Influenza and COVID test were negative. Continue azithromycin and ceftriaxone. Send sputum for culture. Check urine for Legionella pneumococcal antigens. 12/09/2021 interval history: patient is a 36-year-old female with history of alcohol abuse presented with persistent cough shortness of breath chest x-ray suspicious for pneumonia, patient is being treated for community-acquired pneumonia with ceftriaxone and azithromycin I suspect patient has aspiration pneumonia patient had been coughing and vomiting, stop the ceftriaxone and start the patient on Unasyn and continue azithromycin, patient states her loss drink was day before coming to emergency depart patient has high risk of DT will place the patient on Librium and CIWA protocol to monitor, there was also concern patient had hematemesis with history of alcohol abuse will consult GI for further recommend, patient with a hypokalemia hypomagnesemia secondary to alcohol abuse will monitor and supplement. (2) Hypoxia: Code(s): R09.02 - Hypoxemia Status: Acute Assessment and Plan: Related to pneumonia. Wean oxygen as tolerated. (3) Elevated LFTs: Code(s): R79.89 - Other specified abnormal findings of blood chemistry Status: Acute Assessment and Plan: She has a history of hepatitis C though may be related to infection. Abdominal exam is benign. Monitor. (4) Nicotine dependence: Code(s): F17.200 - Nicotine dependence, unspecified, uncomplicated Status: Acute Assessment and Plan: Nicotine patch available per patient request. (5) Alcohol abuse: Code(s): F10.10 - Alcohol abuse, uncomplicated Status: Acute Assessment and Plan: Recently completed inpatient rehab though she has had several drinks here and there the last couple of weeks. Initiate CIWA protocol. Start thiamine and folic acid supplementation. Subjective Date/time seen: 12/09/21 14:22 This is a 36-year-old female smoker with history of alcohol abuse, asthma, mitral valve prolapse, borderline personality disorder, anxiety, and depression who presented to the emergency department for evaluation of cough and shortness of breath. She has not been feeling well for approximately 1 week with sweats, body aches, cough productive of rust-colored sputum, and pleuritic pain. She has coughed so hard a couple of times that she briefly lost consciousness. Over the last couple of days she has been feeling short of breath as well and she came in today because she is not feeling any better. Last week some of her coworkers were complaining of sore throats but they do not have similar symptoms to her, reportedly. She is vaccinated for COVID and she tested negative for influenza and SARs CoV 2 by PCR today in the ER. Chest x-ray showed airspace opacities of the lung bases and left midlung zone suspicious for pneumonia and she is being admitted in this setting as she does have an oxygen requirement currently. She denies sinus congestion, sore throat, change in smell and taste, exertional chest pain, nausea, vomiting, dysphagia, concerns for aspiration, and diarrhea. Of note she was recently in an inpatient rehab facility for alcohol abuse though unfortunately she has been drinking small amounts since then. She denies withdrawal signs and symptoms. 12/09/2021 interval history: patient is a 36-year-old female with history of alcohol abuse presented with persistent cough shortness of breath chest x-ray suspicious for pneumonia, patient is being treated for community-acquired pneumonia with ceftriaxone and azithromycin I suspect patient has aspiration pneumonia patient had been coughing and vomiting, stop the ceftriaxone and start the patient on Unasyn and continue azithromycin
--- NOTE | 2021-12-09 14:25 | WPDGICN ---
Assessment and Plan Assessment and plan (1) Bloating: Code(s): R14.0 - Abdominal distension (gaseous) Status: Acute Assessment and Plan: chronic and unchanged I can do EGD as outpatient, she is quite anxious about appearance of her abdomen but this is unchanged and exam is benign will follow from afar, call if questions (2) Constipation: Code(s): K59.00 - Constipation, unspecified Status: Acute Assessment and Plan: she never had a colonoscopy- will do one as outpatient after she is fully recovered from pneumonia (3) Hepatitis C: Code(s): B19.20 - Unspecified viral hepatitis C without hepatic coma Status: Acute Assessment and Plan: she says that has an appointment coming up at [facility] to see hepatology she is treatment naive and diagnosed long time ago we can repeat HCV RNA and genotype (4) Alcohol abuse: Code(s): F10.10 - Alcohol abuse, uncomplicated Status: Acute Assessment and Plan: thiamine, monitor (5) Elevated LFTs: Code(s): R79.89 - Other specified abnormal findings of blood chemistry Status: Acute Assessment and Plan: mild elevated also from HCV (6) Pneumonia: Code(s): J18.9 - Pneumonia, unspecified organism Status: Acute Assessment and Plan: on antibiotic GI Consult Note Consult date/time: 12/09/21 14:25 Reason for consult: bloating, hepatitis c HPI: María Painter is a 36 year old female with history of alcohol abuse, asthma, mitral valve prolapse, borderline personality disorder, anxiety, depression, former drug abuse and chronic HCV but treatment naive. She came to the emergency department for evaluation of cough and shortness of breath, she has been sick for almost a week with sweats, body aches, productive cough and pleuritic pain. She is vaccinated for COVID and she tested negative for influenza and SARs CoV 2 by PCR. Chest x-ray showed airspace opacities of the lung bases and left midlung zone suspicious for pneumonia, started on antibiotics, feeling ok now. She also says that for last 4 yeas or so after she had episode of C diff has persistent bloating and abdominal discomfort, now actually she has constipation and using stool softeners at home, Never had scopes. AST 63, other liver enzymes normal. Review of Systems Review of Systems: All systems reviewed & are unremarkable except as noted in HPI and below Constitutional: Constitutional: Denies chills, Reports fatigue and Reports weakness Eyes: Eyes: Denies blurry vision ENT: Reports Normal hearing present Cardiovascular: Cardiovascular: Denies chest pain, Denies rapid heart rate and Denies radiating jaw, neck or arm pain Respiratory: Respiratory: Reports cough, Reports dyspnea and Denies wheezing Gastrointestinal: Gastrointestinal: Denies abdominal pain, Denies nausea and Denies vomiting Genitourinary: Genitourinary: Denies nocturia and Denies dysuria Musculoskeletal: Musculoskeletal: Reports myalgias, Denies arthralgias and Denies joint swelling Neurologic: Denies headache(s), Denies focal weakness and Denies numbness Psychiatric: Psychiatric: Reports anxiety [facility] Past Medical History Medical History (Updated 12/09/21 @ 14:30 by Victor M Garrett MD) Alcohol abuse Bloating Bronchitis C. difficile colitis Constipation Hepatitis C Nicotine dependence Surgical History Surgical History No significant past surgical history Family History Family History Other No significant family history Social History Social History (Updated 12/08/21 @ 19:21 by Lu Ramires PA-C) Social History: Surrogate decision maker: Stacy Herrera, grandmother. Code status: Full code. Smoking packs per day: 1 Smoking cigarettes per day: 20.0 Years smoked: 26 Smoking pack-years: 26.00 Sm
[2021-12-12 16:48] LABS: Pneumococcal Antigen Urine Not Detected (Not Detected)
[2021-12-13 07:03] LABS: Legionella pneumophila Ag Ur Not Detected (Not Detected)
--- NOTE | 2022-01-08 17:31 | PM.DS ---
DS: Admitting Diagnosis Discharge Date 12/09/21 Admitting Diagnosis shortness of breath DS: Discharge Diagnosis Discharge Diagnosis (1) Pneumonia: Code(s): J18.9 - Pneumonia, unspecified organism Status: Acute Assessment and Plan: Presumed bacterial, community-acquired pneumonia. Influenza and COVID test were negative. Continue azithromycin and ceftriaxone. Send sputum for culture. Check urine for Legionella pneumococcal antigens. 12/09/2021 interval history: patient is a 36-year-old female with history of alcohol abuse presented with persistent cough shortness of breath chest x-ray suspicious for pneumonia, patient is being treated for community-acquired pneumonia with ceftriaxone and azithromycin I suspect patient has aspiration pneumonia patient had been coughing and vomiting, stop the ceftriaxone and start the patient on Unasyn and continue azithromycin, patient states her loss drink was day before coming to emergency depart patient has high risk of DT will place the patient on Librium and CIWA protocol to monitor, there was also concern patient had hematemesis with history of alcohol abuse will consult GI for further recommend, patient with a hypokalemia hypomagnesemia secondary to alcohol abuse will monitor and supplement. (2) Hypoxia: Code(s): R09.02 - Hypoxemia Status: Acute Assessment and Plan: Related to pneumonia. Wean oxygen as tolerated. (3) Elevated LFTs: Code(s): R79.89 - Other specified abnormal findings of blood chemistry Status: Acute Assessment and Plan: She has a history of hepatitis C though may be related to infection. Abdominal exam is benign. Monitor. (4) Nicotine dependence: Code(s): F17.200 - Nicotine dependence, unspecified, uncomplicated Status: Acute Assessment and Plan: Nicotine patch available per patient request. (5) Alcohol abuse: Code(s): F10.10 - Alcohol abuse, uncomplicated Status: Acute Assessment and Plan: Recently completed inpatient rehab though she has had several drinks here and there the last couple of weeks. Initiate CIWA protocol. Start thiamine and folic acid supplementation. DS: Summary Hospital Course Hospital Course: patient left AMA Time Spent with Patient Time attestation: Total time spent providing and/or coordinating discharge services: Exam Narrative: patient left AMA Discharge Plan Discharge Consulting providers: Og Judge ; Victor M Garrett ; Ye Rachel ; Lu Ramires Patient Disposition: Left Against Medical Advice Discharge Instructions: patient left AMA Patient Instructions: How to Stop Smoking (DC) Discharge Medications: No Action escitalopram oxalate 20 mg tablet 20 mg PO DAILY clonazepam 0.5 mg Tablet 0.5 mg PO BID quetiapine 100 mg tablet 100 mg PO HS Date of admission: 12/08/21 17:12 Primary Care Provider: PHYSICIAN,HOTEL ASSISTANT GENERAL MANAGER Admitting Provider: Aide Kumar Attending physician on admission: Ronald Cannon Condition: Stable Quality VTE Prophylaxis VTE prophylaxis: mechanical ordered
== END 2021-12-09 15:05 | disposition left against medical advice (07) | DRG 139 ==
LOC: ANHED 14:32 → ANH3MEDSUR 16:23
PROVIDERS: Emergency Medicine; Physician Assistant; Admitting Provider Student in an Organized Health Care Education/Training Program; Emergency Provider Emergency Medicine; Visit Provider Family Medicine
DX: J18.9 Pneumonia, unspecified organism (principal); E87.6 Hypokalemia; E83.42 Hypomagnesemia; B18.2 Chronic viral hepatitis C; R09.02 Hypoxemia; Z20.822 Contact with and (suspected) exposure to COVID-19; F17.210 Nicotine dependence, cigarettes, uncomplicated; F10.10 Alcohol abuse, uncomplicated; F41.9 Anxiety disorder, unspecified; F32.A Depression, unspecified; F60.3 Borderline personality disorder; I34.1 Nonrheumatic mitral (valve) prolapse; J44.0 Chronic obstructive pulmonary disease with (acute) lower respiratory infection; K59.00 Constipation, unspecified; R79.89 Other specified abnormal findings of blood chemistry; R14.0 Abdominal distension (gaseous); Z86.19 Personal history of other infectious and parasitic diseases
CPT/HCPCS: 36415; 71045; 80053; 80307; 81003; 81025; 83605; 83735; 83880; 84484; 85025; 85027; 85055; 85380; 85610; 85730; 87040; 87070; 87205; 87426; 87449; 87502; 87899; 94640; 96365; 96367; 96375; 99285; A9270; C9803; G0378; J0456; J0696; J1885; J2060; J3411; J3480; J7030; J7040; U0003; U0005

== ENCOUNTER 2022-05-12 10:04 | Emergency (ER) | payer MEDICAID, SELFPAY ==
[2022-05-12 10:27] VITALS: BP 122/76; PULSE 92; RESP 18; TEMP 36.4; O2SAT 97
--- NOTE | 2022-05-12 10:47 | ED.EYEPROB ---
HPI - Eye Problem General Chief complaint: Eye Problems Stated complaint: rt eye discomfort Time Seen by Provider: 05/12/22 10:42 Source: patient Mode of arrival: ambulatory Limitations: no limitations History of Present Illness HPI Narrative: patient presents today complaining of a 3 month history of a, zayas to the medial right upper eyelid. Reports it has been getting bigger since onset. Denies pain, but does report itching. She has been applying [id number] stye ointment without relief. Related Data Home Medications Medication Instructions Recorded Confirmed clonazepam 0.5 mg tablet 0.5 mg PO BID 01/19/20 12/08/21 escitalopram oxalate 20 mg tablet 20 mg PO DAILY 11/14/20 12/08/21 quetiapine 100 mg tablet 100 mg PO HS 12/08/21 12/08/21 Allergies Allergy/AdvReac Type Severity Reaction Status Date / Time prochlorperazine Allergy Intermediate Swelling Verified 12/08/21 18:27 trazodone Allergy Intermediate legs seize Verified 12/08/21 18:27 up haloperidol [From Haldol] Allergy Swelling Verified 12/08/21 18:27 of Lip/Tongue/Throat Review of Systems Review of Systems: CONSTITUTIONAL: Denies body aches, fever, chills, or sweats. EYES: Denies visual changes, redness, or discharge. + pimple to right eyelid ENT: Denies rhinorrhea, congestion, sore throat, or otalgia. CARDIOVASCULAR: Denies chest pain, palpitations, or edema. RESPIRATORY: Denies cough or dyspnea. GASTROINTESTINAL: Denies abdominal pain, nausea, vomiting, or diarrhea. GENITOURINARY: Denies dysuria or hematuria. SKIN: Denies rash, itching, or wounds. MUSCULOSKELETAL: Denies back pain, joint pain, or myalgia. NEUROLOGIC: Denies headache, numbness, tingling, or weakness. PSYCH: Denies depression or anxiety. [facility] Past Medical History Medical History Alcohol abuse Bloating Bronchitis C. difficile colitis Constipation Hepatitis C Nicotine dependence Surgical History Surgical History No significant past surgical history Family History Family History Other No significant family history Social History Social History Social History: Surrogate decision maker: Stacy Herrera, grandmother. Code status: Full code. Smoking packs per day: 1 Smoking cigarettes per day: 20.0 Years smoked: 26 Smoking pack-years: 26.00 Smoking status: Current every day smoker Tobacco type: cigarettes Alcohol intake: current Drinks per week: 3 Substance use: former Spiritual care concerns: No Comments At time of signature, I have reviewed and agree with nursing past medical, surgical, social and family history unless otherwise noted. Please see nursing chart for further information. There is no relevant family history pertinent to the presenting complaint Exam Narrative: GENERAL: Well-appearing, well-nourished, and in no acute distress. HEAD: Normocephalic, atraumatic. EYES: EOMI. No redness or drainage. Conjunctivae normal. Small white pustule to the right eye inner canthus. No surrounding erythema or edema. Nontender. ENT: Mucous membranes pink and moist. NECK: Normal AROM. CHEST: No respiratory distress. EXTREMITIES: Normal range of motion. No edema. SKIN: Warm, dry, no rash. Capillary refill normal. Normal skin turgor. NEURO: No focal deficits. Alert and oriented x3. Gait steady. PSYCH: Normal affect. No signs of depression or anxiety. Course Course Level of Care: Express Care Visit Vital Signs Vital signs: Vital Signs Temperature 97.6 F 05/12/22 10:27 Pulse Rate 92 05/12/22 10:27 Respiratory Rate 18 05/12/22 10:27 Blood Pressure 122/76 05/12/22 10:27 Pulse Oximetry 97 05/12/22 10:27 Oxygen Delivery Room Air 05/12/22 10:27
== END 2022-05-12 11:05 | disposition home or self-care (01) ==
PROVIDERS: Emergency Provider Nurse Practitioner
DX: L08.9 Local infection of the skin and subcutaneous tissue, unspecified (principal); F17.210 Nicotine dependence, cigarettes, uncomplicated; Z86.19 Personal history of other infectious and parasitic diseases
CPT/HCPCS: 99213; G0463

== ENCOUNTER 2022-08-13 19:22 | Inpatient (IN) | payer MEDICAID, SELFPAY ==
[2022-08-13] VITALS (11 sets, daily range): BP systolic 149; BP diastolic 115; PULSE 98; RESP 17; TEMP 36.5; O2SAT 94–100
--- NOTE | ~2022-08-13 | US_ITS ---
EXAMINATION: US abdomen limited DATE: 08/13/2022 21:49 INDICATION: pain TECHNIQUE: Multiple grayscale and Doppler ultrasound images of limited portions of the abdomen were o btained. COMPARISON: Right upper quadrant ultrasound 09/19/2020; CT abdomen pelvis 01/19/2020. FINDINGS: The visualized portions of the pancreas are normal. The liver is normal size with normal in creased echogenicity and normal echotexture. No surface nodularity. Normal hepatopetal flow in the ma in portal vein. The gallbladder is normal with no abnormal wall thickening, pericholecystic fluid or stones. The common bile duct measures 4 mm. There was no sonographic Shore sign. IMPRESSION: Echogenic liver, most commonly due to steatosis but also can be seen with hepatitis and fibrosis. Oth erwise normal limited abdominal ultrasound findings. Reviewed, dictated and finalized at location K. [employer] IMPRESSION: Echogenic liver, most commonly due to steatosis but also can be seen with hepat itis and fibrosis. Otherwise normal limited abdominal ultrasound findings.
--- NOTE | ~2022-08-13 | CT_ITS ---
EXAMINATION: CT abdomen pelvis w con DATE: 08/13/2022 22:19 INDICATION: right upper abdominal pain TECHNIQUE: Computed tomography (CT) of the abdomen and pelvis was performed with 100 mL Omnipaque-350 intravenous contrast. Automated exposure control and iterative reconstruction technique were employe d. The dose-length product was 315.84 mGy-cm. COMPARISON: Limited abdominal ultrasound, same date; CT abdomen and pelvis 01/19/2020. FINDINGS: Lower thorax: Mild dependent atelectasis. Left lower lobe granuloma. Liver: Mild enlargement. Diffuse fatty infiltration. Biliary/Gallbladder: Mild gallbladder distention. No stones, wall thickening or fluid. No bile duct d ilation. Pancreas: No mass or duct dilation. Spleen: Normal. Adrenals:No mass. Kidneys: No mass, stone, or hydronephrosis. GI tract: Moderate distal esophageal and gastric wall edema. No small or large bowel dilation. The ap pendix is mildly dilated, with mild wall edema and surrounding inflammatory change. Retrocecal append ix which extends up to the free margin of the liver. Apparent appendiceal wall edema and inflammatory change or present in the prior study although the appendiceal diameter was previously normal. Large volume of colonic stool. Mesentery/Peritoneum: No ascites, mass, or free air. Retroperitoneum: No mass. Pelvis: Moderately distended urinary bladder with wall thickening. Fluid density serpiginous structur e in the right adnexa.. Soft Tissues: Soft tissues and body wall unremarkable. Bones: No acute osseous finding. IMPRESSION: Moderate esophagitis/gastritis. Hepatomegaly with steatosis. Gallbladder hydrops, may be secondary to fasting, correlate with biliary labs. No CT evidence of cholecystitis. Mild dilation of the retrocec al appendix, as can be seen with early appendicitis. Right hydrosalpinx. Cystitis. Reviewed, dictated and finalized at location K. [employer] IMPRESSION: Moderate esophagitis/gastritis. Hepatomegaly with steatosis. Gallbladder hydrop s, may be secondary to fasting, correlate with biliary labs. No CT evidence of cholecystitis. Mild dilation of the retrocecal appendix, as can be seen with ea rly appendicitis. Right hydrosalpinx. Cystitis.
[2022-08-13 19:51] LABS: Basophils Absolute Auto 0.1 K/mm3 (0.0-0.1); Eosinophils Absolute Auto 0.1 K/mm3 (0-0.3); Eosinophils Percent Auto 0.9 % (0-4.4); Hematocrit 53.4 % (37.0-47.0); Hemoglobin 18.7 g/dL (12.0-15.0); Immature Granulocyte Absolute 0.03 K/mm3 (0.00-0.031); Immature Granulocyte Percent A 0.4 % (0-0.5); Lymphocytes Absolute Auto 2.71 K/mm3 (0.9-3.2); Lymphocytes Percent Auto 35.2 % (18.3-44.2); Mean Corpuscular Hemoglobin 34.8 pg (26-34); Mean Corpuscular Volume 99.3 fl (80-100); Mean Platelet Volume 12.2 fl (7.4-10.4); Monocytes Absolute Auto 0.4 K/mm3 (0.1-0.6); Monocytes Percent Auto 5.1 % (2.6-8.5); Neutrophils Absolute Auto 4.4 K/mm3 (1.3-6.7); Neutrophils Percent Auto 57.4 % (45.5-73.1); Platelet Count Result 143 k/mm3 (150-375); Red Blood Count 5.38 M/mm3 (4.2-5.4); White Blood Count 7.7 K/mm3 (4.5-10.0)
[2022-08-13 20:09] LABS: Alanine Aminotransferase 62 U/L (6-35); Albumin Level 4.8 g/dL (3.5-5.1); Alkaline Phosphatase 263 U/L (38-126); Anion Gap 8 mmol/L (8-16); Aspartate Amino Transferase 120 U/L (14-36); Bilirubin,Total 0.9 mg/dL (0.2-1.3); Blood Urea Nitrogen 4 mg/dL (7-17); Calcium 9.1 mg/dL (8.4-10.2); Carbon Dioxide 29 mmol/L (22-30); Chloride 99 mmol/L (98-107); Estimated CRCL calculation 89 ml/min; Estimated Glomerular Filt Rate > 60; Glucose 119 mg/dL (65-110); Lipase 53 U/L (23-300); Potassium 4.2 mmol/L (3.4-5.0); Sodium 136 mmol/L (137-145)
[2022-08-13 20:32] LABS: Appearance Urine Slightly Cloudy (Clear); Bilirubin Urine Negative (Negative); Blood Urine Negative (Negative); Color Urine Light Yellow (Yellow); Glucose Urine UA Negative (Negative); Ketones Urine Negative (Negative); Leukocyte Esterase Ur Negative LEU/UL (Negative); Nitrate Urine Negative (Negative); Protein Urine Negative (Negative); Specific Grav Ur <= 1.005 (1.001-1.035); Urobilinogen Urine 0.2 mg/dL (<2.0); pH Urine 6.5 (5.0-9.0)
[2022-08-13 20:37] LABS: Mucus Urine Rare /lpf; RBC Urine 0-2 /hpf (0-2); Squamous Epithelial Cell Urine Few /hpf (Few); WBC Urine 0-3 /hpf
[2022-08-13 20:38] LABS: Add Urine Microscopic? YES
--- NOTE | 2022-08-13 20:58 | ED.ABDPAIN ---
HPI - Abdominal Pain General Chief Complaint: Abdominal Pain Stated Complaint: abdominal pain Time Seen by Provider: 08/13/22 20:21 Source: patient, RN notes reviewed and old records reviewed Mode of arrival: ambulatory Limitations: no limitations History of Present Illness HPI narrative: This is a 37 year old female who presents for evaluation of right upper abdominal pain. She reports having pain intermittently for 1 week. She reports nausea and vomiting. She also reports subjective fever and chills. She denies any urinary complaints. Her last bowel movement was normal this morning. She has not taken any medication for her pain. She rates her pain 8/10. She is unaware of any exacerbating factors. She told triage that she had pain similar and she was told she needed her gallbladder out. Related Data Home Medications Medication Instructions Recorded Confirmed clonazepam 0.5 mg tablet 0.5 mg PO BID 01/19/20 08/14/22 escitalopram oxalate 20 mg tablet 20 mg PO DAILY 11/14/20 08/14/22 quetiapine 100 mg tablet 100 mg PO HS 12/08/21 08/14/22 Allergies Allergy/AdvReac Type Severity Reaction Status Date / Time prochlorperazine Allergy Intermediate Swelling Verified 08/14/22 12:10 trazodone Allergy Intermediate legs seize Verified 08/14/22 12:10 up haloperidol [From Haldol] Allergy Swelling Verified 08/14/22 12:10 of Lip/Tongue/Throat Review of Systems Constitutional: Constitutional: Denies weakness Cardiovascular: Cardiovascular: Denies syncope, Denies rapid heart rate, Denies irregular heart rhythm, Denies leg edema and Denies dyspnea Respiratory: Respiratory: Denies chest congestion, Denies hemoptysis, Denies excessive phlegm production and Denies dyspnea Gastrointestinal: Gastrointestinal: Reports abdominal pain, Denies hematochezia, Denies diarrhea, Reports nausea and Reports vomiting Genitourinary: Genitourinary: Denies hematuria and Denies dysuria Musculoskeletal: Musculoskeletal: Denies joint swelling, Denies loss of height and Denies muscle weakness Neurologic: Denies syncope, Denies focal weakness and Denies weakness PMFSH Past Medical History Medical History (Updated 08/14/22 @ 17:02 by Agnes Hendrix MD) Alcohol abuse Anxiety and depression Borderline personality disorder Bronchitis C. difficile colitis Fatty liver due to alcoholism Hepatitis C Nicotine dependence Surgical History Surgical History No significant past surgical history Family History Family History Other No significant family history Social History Social History (Updated 08/14/22 @ 11:43 by Candida Conley APRN) Social History: Surrogate decision maker: Stacy Herrera, grandmother. Code status: Full code. Smoking packs per day: 1 Smoking cigarettes per day: 20.0 Years smoked: 23 Smoking pack-years: 23.00 Smoking status: Current every day smoker Tobacco type: cigarettes Alcohol intake: current Drinks per week: 14 Alcohol use details: 1-2 twisted tea after work everynight Substance use: current Substance use type: IV drugs and prescription drug Other substance usage details: clonazepam, seroquel, lexapro; reports IV drug use in the past 15 years ago Lack of Transportation: No Lack of Food: Often True Current Housing: I Have Housing Concerned About Future Housing: No Difficulty Paying Gas/Electric Bills: No Difficulty Paying for Meds: No Currently Unemployed: No Education: Grade School Difficulty w/ Childcare or Family Care: No Spiritual care concerns: No Exam Const: General: alert Nutritional Appearance: well nourished Orientation/consciousness: patient oriented x3 Limitations: no limitations HENMT: Head: normal to inspection Face and sinus: normal facial exam Mouth: Yes Normal oral and palatal mucosa present Eyes: EOM: EOMs
[2022-08-13] MEDS: SODIUM CHLORIDE 0.9% IV 1,000 ML 999 ML IV CONT ×2 (21:00→21:01)
[2022-08-13] MEDS: ONDANSETRON INJ 4 MG/2 ML VIAL IV PUSH (21:01)
[2022-08-13] MEDS: KETOROLAC 30 MG/ML VIAL (*BKC) IV PUSH (21:01)
[2022-08-13 21:17] LABS: Pregnancy On Board Control Positive; Urine Pregnancy Test Negative
[2022-08-13 21:39] LABS: Amphetamine Screen Urine Negative (Negative); Barbiturate Screen Urine Negative (Negative); Benzodiazepines Screen Urine Positive (Negative); Cannabinoid Screen Urine Negative (Negative); Cocaine Screen Urine Negative (Negative); Methadone Screen Urine Negative (Negative); Opiate Screen Urine Negative (Negative); Phencyclidine Screen Urine Negative (Negative)
[2022-08-13 22:03] LABS: Ethanol < 10 mg/dL (<10)
[2022-08-13] MEDS: MORPHINE SULFATE (*CRX) 4 MG/ML INJ IV PUSH (23:27)
[2022-08-14] VITALS (19 sets, daily range): BP systolic 84–156; BP diastolic 40–100; PULSE 61–130; RESP 13–117; TEMP 35.7–36.8; O2SAT 20–100; BMI 26.0
[2022-08-14] MEDS: MORPHINE SULFATE (*CRX) 4 MG/ML INJ IV PUSH (00:42)
[2022-08-14 00:47] LABS: INR 1.2; Prothrombin Time 14.5 Seconds (11.1-14.7)
[2022-08-14 00:49] LABS: Partial Thromboplastin Time 42.5 SECONDS (22.3-36.8)
[2022-08-14 01:08] LABS: SARS-CoV-2 RNA PCR Negative
[2022-08-14] MEDS: HYDROmorphone HCL INJ (*CRX) 1 MG/ML SYR 0.5 MG IV PUSH ×12 (02:28→18:26)
[2022-08-14] MEDS: SODIUM CHLORIDE 0.9% IV 1,000 ML 125 ML IV CONT ×2 (02:43→10:12)
--- NOTE | 2022-08-14 02:59 | ADMGEN ---
This patient, María Painter, was admitted to 3 [facility] Surg Room 301-01 at 0230. Patient/family oriented to hospital policies and general routines including ID bracelet, bed and alarms, visiting hours, pain management, procedures, bathroom and other care routines, personal items, smoking policy, room service/diet, and visiting hours. Information on how to activate the Rapid Response Team has been discussed. Patient/Family are encouraged to report perceived risks to care and to ask questions if they do not understand what they are told or what they should do.
--- NOTE | 2022-08-14 07:12 | PM.IMHP ---
H&P: HPI History of Present Illness Date/Time: 08/14/22 07:12 Chief Complaint: abdominal pain Narrative: María Painter is a 37 yo female with history of hepatitis C, alcohol abuse, tobacco dependence and c.diff colitis, who presented to the ED for evaluation of abdominal pain for approximately 1 week. She reports the pain worsened overnight and is constant and a poking sensation. She reports the pain feels like a baby is kicking you. She had associated nausea, vomiting, subjective fever with alternating chills and sweating episodes. The pain worsens with activity and improved with analgesics in the ED. She did not take any medications at home. Her emesis was food like, nonbloody or non-coffee ground. She last meal was at 2pm yesterday and she ate mini tacos, beef jerky and a cheese stick. She later vomited but it was not immediately after eating. She reports her last BM was brown and formed yesterday without straining. In the ED, vitals were temp 97.7F, HR 98, RR 17, BP 149/117, spO2 97% room air. Lab work showed WBC 7.7 without left shift, Tbili 0.9, AST 120, ALT 62 and alk phos 263. Lipase and CMP are otherwise unremarkable except as noted. H/H 18/[address] abdomen and pelvis showed moderate esophagitis/gastritis, hepatomegaly with steatosis, mildly dilated retrocecal appendix suggestive of possible early appendicitis, and possible cystitis. Abdomina US showed echogenic liver suggestive of steatosis, hepatitis or fibrosis. She was treated with 2 liters isotonic fluids, Toradol 30 mg IV x1, acetaminophen IV 1 gram x1, Morphine 4 mg IV x2, and Zosyn 3.375 mg IV x1. She was admitted to the medical floor for IV antibiotics, symptom management and surgical evaluation. Review of Systems Constitutional: Constitutional: Reports as per HPI Eyes: Eyes: Reports no additional eye complaints ENT: Reports system reviewed and no additional complaints, except as documented Cardiovascular: Cardiovascular: Reports no additional cardiovascular complaints Respiratory: Respiratory: Denies change in phlegm color, Denies chest congestion, Reports cough, Denies hemoptysis, Denies excessive phlegm production, Denies dyspnea, Denies dyspnea on exertion and Denies wheezing Gastrointestinal: Gastrointestinal: Reports as per HPI, Denies melena, Denies hematochezia, Denies constipation, Denies dysphagia, Reports heartburn, Denies diarrhea, Denies vomiting and Denies hematemesis Genitourinary: Genitourinary: Reports no additional female genitourinary complaints, Denies hematuria, Denies urinary frequency, Denies nocturia, Denies dysuria, Denies pelvic pain, Denies flank pain, Denies urinary hesitancy, Denies urinary urgency and Denies vaginal discharge Musculoskeletal: Musculoskeletal: Reports no additional musculoskeletal complaints Integumentary/Breasts: Skin/Breast: Reports system reviewed and no additional complaints, except as docu Neurologic: Reports system reviewed and no additional complaints, except as documented Psychiatric: Psychiatric: Reports anxiety, Reports depression, Reports panic attacks (on clonazepam), Denies homicidal ideation and Denies suicidal ideation [facility] Past Medical History Medical History (Updated 08/14/22 @ 11:53 by Candida Conley APRN) Alcohol abuse Anxiety and depression Borderline personality disorder Bronchitis C. difficile colitis Fatty liver due to alcoholism Hepatitis C Nicotine dependence Surgical History Surgical History No significant past surgical history Family History Family History Other No significant family history Social History Social History (Updated 08/14/22 @ 11:43 by Candida Conley APRN) Social History: Surrogate decision maker: Stacy Herrera, grandmother. Code status: Full code. Smoking packs per day: 1 Smoking cigarettes per day: 20.0 Years sm
--- NOTE | 2022-08-14 07:43 | ECG_ITS ---
Measurements Intervals [place] Rate: 65 P: -2 SC: 190 QRS: 62 QRSD: 87 T: 29 QT: 438 QTc: 456 Interpretive Statements SINUS RHYTHM NO PREVIOUS ECG AVAILABLE FOR COMPARISON Electronically Signed On 08-14-2022 11:38:45 [employer] by Stef Chavez M.D.
--- NOTE | 2022-08-14 09:25 | PM.CNGS ---
Assessment and Plan Assessment and plan (1) Appendicitis: Code(s): K37 - Unspecified appendicitis Status: Acute Assessment and Plan: Imaging reviewed and discussed with the patient in detail, which suggests possible early appendicitis. She continues to have abdominal pain today with tenderness in the right mid to upper abdomen, which would more correlate with the location of a retrocecal appendix. Discussed treatment options with the patient both surgical and nonoperative management. We discussed the option of a laparoscopic appendectomy, possible open, under general anesthesia. Description of the procedure, risks, benefits, expected outcomes, and expected recovery were discussed with the patient in detail. She wishes to proceed with surgery. Continue IV Zosyn, IV fluids, and analgesics as needed. Will keep NPO and try adding her onto the surgery schedule later today. (2) Hepatitis C: Code(s): B19.20 - Unspecified viral hepatitis C without hepatic coma Status: Acute Assessment and Plan: She was diagnosed with Hepatitis C about a year ago and has a referral to see a specialist at [facility] but has not yet established care or had treatment. (3) Elevated LFTs: Code(s): R79.89 - Other specified abnormal findings of blood chemistry Status: Acute Assessment and Plan: LFTs have been elevated in review of labs over the last year. She was diagnosed with Hepatitis C about a year ago and has a referral to see a specialist at [facility] but has not yet established care or had treatment. (4) Alcohol abuse: Code(s): F10.10 - Alcohol abuse, uncomplicated Status: Acute Assessment and Plan: Increases surgical risks. Will be placed on CIWA protocol per Hospitalist. (5) GERD with esophagitis: Code(s): K21.00 - Gastro-esophageal reflux disease with esophagitis, without bleeding Status: Acute Assessment and Plan: Esophagitis/gastritis noted on CT. Currently on IV Protonix. (6) Nicotine dependence: Code(s): F17.200 - Nicotine dependence, unspecified, uncomplicated Status: Acute Assessment and Plan: Increases surgical risks. Plan I have discussed the patient's case and plan of care with Dr. León. History of Present Illness Consult details Consult date: 08/14/22 Reason for consult: other (Possible appendicitis) Requesting physician: Agnes Hendrix MD Narrative: This is a 37-year-old woman who presented to the ER with complaints of RUQ abdominal pain and vomiting. She reports having chills off and on for the past week. She also had associated nausea but no other symptoms. Yesterday, around 6 pm she had a sudden onset of RUQ abdominal pain and vomiting. Her last meal was about 4 hours prior to onset of pain with beef jerky and cheese stick. Her pain was intense and ultimately brought her into the ER for evaluation. Labs showed a normal WBC count and mildly elevated LFTs. In review of her labs, she has consistently had mildly elevated LFTs over the past year. She was reportedly diagnosed with Hepatitis C and referred to [facility] about a year ago, but has not had her initial consultation yet. She had a RUQ abdominal US in the ER that showed an echogenic liver and a normal gallbladder with no stones or sludge. She then had a CT abdomen and pelvis that showed moderate esophagitis/gastritis, mild dilation of the retrocecal appendix suggesting possible early appendicitis, hepatomegaly with steatosis, right hydrosalpinx, cystitis, and gallbladder distention without any other findings of cholecystitis. She was admitted to the Hospitalist service. G/C and trichomonas testing is pending. Our service was consulted for possible appendicitis. She is now seen on the medical floor. She continues to have right mid to upper abdominal pain. Her pain is aggravated by movement. She reports having a history of some other similar episodes of pain that were more mild and would resolve spontane
[2022-08-14] MEDS: ESCITALOPRAM OXALATE 10 MG TABLET 20 MG PO (10:02)
[2022-08-14] MEDS: PANTOPRAZOLE SODIUM IV 40 MG VIAL IV PUSH (10:02)
[2022-08-14] MEDS: clonazePAM (*CRX) 0.5 MG TABLET PO ×2 (10:12→18:01)
[2022-08-14] MEDS: ONDANSETRON INJ 4 MG/2 ML VIAL IV PUSH ×3 (10:12→17:06)
[2022-08-14] MEDS: THIAMINE HCL 200 MG/2 ML VIAL 100 MG IV PUSH (10:19)
[2022-08-14] MEDS: FOLIC ACID 1 MG/0.2 ML INJ IV PUSH (10:19)
--- NOTE | 2022-08-14 11:46 | WPDHPUPDATE1 ---
History and Physical Update Update Date/Time: 08/14/22 11:46 History and Physical has been reviewed, including an updated exam of the patient. There are NO changes in the patient's condition. Risks, benefits, and alternatives have been discussed and questions answered. Patient agrees to proceed with procedure.
[2022-08-14] MEDS: LACTATED RINGERS 1,000 ML 30 ML IV CONT ×2 (12:00→13:18)
--- NOTE | 2022-08-14 12:08 | WPDANESEPPF ---
Anes - Initial Pre Proc Eval Procedure: Operation Date: 08/14/22 15:30 Proposed Procedures p Laparoscopic Appendectomy - Pam León MD Date/Time: 08/14/22 12:08 Surgeon: Sebas Salas MD Pre Op Diagnosis: Hepatitis,Diffuse Abdominal Pain,R/O Appendicitis Patient Data Age: 37 Gender: F Height: 1.6 m Weight: 66.7 kg Last Vital Signs Temp 97.0 F L 08/14/22 06:00 Pulse 74 08/14/22 06:00 Resp 16 08/14/22 06:00 BP 126/82 08/14/22 06:00 Pulse Ox 93 08/14/22 06:00 O2 Del Method Room Air 08/14/22 08:00 Allergies Allergy/AdvReac Type Severity Reaction Status Date / Time prochlorperazine Allergy Intermediate Swelling Verified 12/08/21 18:27 trazodone Allergy Intermediate legs seize Verified 12/08/21 18:27 up haloperidol [From Haldol] Allergy Swelling Verified 12/08/21 18:27 of Lip/Tongue/Throat Home Medications Medication Instructions Recorded Confirmed Type clonazepam 0.5 mg tablet 0.5 mg PO BID 01/19/20 08/14/22 History escitalopram oxalate 20 mg tablet 20 mg PO DAILY 11/14/20 08/14/22 History quetiapine 100 mg tablet 100 mg PO HS 12/08/21 08/14/22 History polymyxin B sulfate 10,000 1 drp RIGHT EYE Q3H 7 days #10 mL 05/12/22 08/14/22 Rx unit-trimethoprim 1 mg/mL eye drops (Polytrim) Laboratory Tests 08/13/22 08/13/22 08/13/22 19:45 19:45 19:45 WBC 7.7 K/mm3 K/mm3 (4.5-10.0) RBC 5.38 M/mm3 M/mm3 (4.2-5.4) Hgb 18.7 g/dL H D g/dL (12.0-15.0) Hct 53.4 % H % (37.0-47.0) MCV 99.3 fl fl (80-100) MCH 34.8 pg H pg (26-34) MCHC 35.0 g/dl g/dl (32-36) RDW 13.0 % % (11.5-14.5) Plt Count 143 k/mm3 L k/mm3 (150-375) MPV 12.2 fl H fl (7.4-10.4) Immature Gran % (Auto) 0.4 % % (0-0.5) Neut % (Auto) 57.4 % % (45.5-73.1) Lymph % (Auto) 35.2 % % (18.3-44.2) [place] % (Auto) 5.1 % % (2.6-8.5) Eos % (Auto) 0.9 % % (0-4.4) Baso % (Auto) 1.0 % % (0.2-1.2) Lymph # (Auto) 2.71 K/mm3 K/mm3 (0.9-3.2) [place] # (Auto) 0.4 K/mm3 K/mm3 (0.1-0.6) Eos # (Auto) 0.1 K/mm3 K/mm3 (0-0.3) Baso # (Auto) 0.1 K/mm3 K/mm3 (0.0-0.1) Abs Immat Gran (auto) 0.03 K/mm3 K/mm3 (0.00-0.031) Absolute Neuts (auto) 4.4 K/mm3 K/mm3 (1.3-6.7) Absolute Nucleated RBC 0.0 K/mm3 K/mm3 (0.0-0.012) Nucleated RBC % 0.0 % % (0.0-0.2) PT INR APTT Sodium 136 mmol/L L mmol/L (137-145) Potassium 4.2 mmol/L mmol/L (3.4-5.0) Chloride 99 mmol/L mmol/L (98-107) Carbon Dioxide 29 mmol/L mmol/L (22-30) Anion Gap 8 mmol/L mmol/L (8-16) BUN 4 mg/dL L mg/dL (7-17) Creatinine 0.60 mg/dL L mg/dL (0.7-1.0) Estim Creat Clear Calc 89 ml/min ml/min Estimated GFR > 60 (59 - ) Glucose 119 mg/dL H mg/dL (65-110) Calcium 9.1 mg/dL mg/dL (8.4-10.2) Total Bilirubin 0.9 mg/dL mg/dL (0.2-1.3) AST 120 U/L H U/L (14-36) ALT 62 U/L H U/L (6-35) Alkaline Phosphatase 263 U/L H U/L (38-126) Total Protein 8.0 g/dL g/dL (6.3-8.2) Albumin 4.8 g/dL g/dL (3.5-5.1) Lipase 53 U/L U/L (23-300) Urine Color Urine Appearance Urine pH Ur Specific [place] Urine Protein Urine Glucose (UA) Urine Ketones Ur Blood (Man) Urine Nitrate Urine Bilirubin Urine Urobilinogen Leukocyte Esterase Rfl Urine RBC Urine WBC Ur Squamous Epith Cells Hyaline Casts Urine Mucus Urine Test Urine Opiates Screen
[2022-08-14 12:14] LABS: Glucose Point of Care 127 mg/dl (65-105)
[2022-08-14] MEDS: fentaNYL CITRATE INJ (*CRX) 100 MCG/2 ML VIAL 25 MCG IV PUSH ×4 (13:19→13:28)
--- NOTE | 2022-08-14 13:21 | P.OP_ITS ---
Procedure Note - Detailed Date of Procedure 08/14/22 Pre-op Diagnosis Acute appendicitis Post-op Diagnosis Same Procedure Performed laparoscopic appendectomy Surgeon Pam León MD Anesthesia General Indications 37-year-old female presenting to the emergency department complaining of right- sided abdominal pain. Workup, including imaging, significant for acute appendicitis. Findings acute appendicitis no evidence of perforation Description of Procedure The patient was taken to the operating room and placed in the supine position. After adequate induction of general anesthesia, the patient was prepped and draped in the normal sterile fashion. A time-out was then done to verify the patient's identity, as well as the procedure being performed. I began by making a 5 mm incision in the infraumbilical region, through this a Veress needle was placed in the peritoneal cavity. CO2 gas was then insufflated and after adequate pneumoperitoneum was achieved the Veress needle was removed. Then placed a 5 mm Optiview trocar under direct visualization into the peritoneal cavity. I then insufflated through this trocar site and the endoscope was placed into the trocar. Under direct visualization, I placed 2 further ports, a 5 mm right mid abdominal port as well as an additional 12 mm port in the left mid abdomen. At this point identified the cecum, I retracted the cecum both medially and superiorly allowing me to expose the appendix. The appendix was retrocecal tracking up to the tip of the liver. The appendix was noted to be very dilated and inflamed throughout. The appendix was noted to be very adherent to the right lateral sidewall. I was able to bluntly dissect the appendix from these adhesions. I then was able to locate the base of the appendix with the cecum. I created a window with the [place] dissector between the appendix itself and the mesoappendix. I then transected the mesoappendix with a white vascular staple load. The Endo-MEGHA was then reloaded with a blue staple load and I transected the base of the appendix. Once the specimen was completely detached, an endo-pouch was placed into the 12 mm port site and the specimen was removed through the endo-pouch. The appendiceal specimen will be sent to pathology for further review. I then copiously irrigated the right mid abdomen. Hemostasis was noted at both staple lines no other pathology was seen in this area. I then moved the camera to the left mid abdominal port to check our its port of entry. No iatrogenic injury or other pathology was noted in the upper abdomen. I then closed the 12 mm port site with a [place] code and 0 Vicryl suture under direct visualization. At this point, the abdomen was desufflated and all ports were removed. All port sites were closed with 4 Monocryl subcuticular suture. Dermabond was placed on all wounds. The patient tolerated the procedure well and was extubated in the operating room postop. She will be sent to the recovery room in stable condition. Estimated Blood Loss 10 Drains No Packing No Pathology Yes Complications No immediate complications Condition Stable Disposition PACU [facility] Billing Surgery - Charge Forward: Surgery Billing
[2022-08-14] MEDS: diphenhydrAMINE HCl INJ 50 MG/ML VIAL 12.5 MG IV PUSH ×2 (13:43→13:55)
[2022-08-14] MEDS: MIDAZOLAM HCL (*CRX) 2 MG/2 ML VIAL 1 MG IV PUSH (14:30)
[2022-08-14] MEDS: PROPOFOL IV EMULSION 200 MG/20 ML VIAL 50 MG IV PUSH (14:59)
--- NOTE | 2022-08-14 15:00 | SUR.PHASEI ---
1450 complains pain frequently,dr torres aware and at side several times, with pain med limit increased,dr torres at side and gave propfol with o2 replaced.pt awake .
[2022-08-14] MEDS: QUEtiapine FUMARATE 100 MG TABLET PO (20:07)
[2022-08-14] MEDS: LORazepam INJ (*CRX) 2 MG/ML VIAL IV PUSH (20:38)
[2022-08-15] VITALS (9 sets, daily range): BP systolic 104–129; BP diastolic 63–87; PULSE 78–108; RESP 12–20; TEMP 36.4–36.6; O2SAT 85–91
[2022-08-15] MEDS: HYDROmorphone HCL INJ (*CRX) 1 MG/ML SYR 0.5 MG IV PUSH ×5 (00:33→20:05)
[2022-08-15] MEDS: SODIUM CHLORIDE 0.9% IV 1,000 ML 125 ML IV CONT ×3 (00:34→16:02)
[2022-08-15 00:37] LABS: Glucose Point of Care 146 mg/dl (65-105)
[2022-08-15 06:09] LABS: Basophils Percent Auto 0.3 % (0.2-1.2); Eosinophils Percent Auto 0.1 % (0-4.4); Hematocrit 25.1 % (37.0-47.0); Hemoglobin 8.2 g/dL (12.0-15.0); Immature Granulocyte Percent A 0.6 % (0-0.5); Lymphocytes Absolute Auto 4.54 K/mm3 (0.9-3.2); Lymphocytes Percent Auto 29.1 % (18.3-44.2); Mean Corpuscular HGB Conc 32.7 g/dl (32-36); Mean Corpuscular Hemoglobin 33.2 pg (26-34); Mean Corpuscular Volume 101.6 fl (80-100); Mean Platelet Volume 12.7 fl (7.4-10.4); Monocytes Absolute Auto 1.1 K/mm3 (0.1-0.6); Monocytes Percent Auto 6.7 % (2.6-8.5); Neutrophils Absolute Auto 9.9 K/mm3 (1.3-6.7); Neutrophils Percent Auto 63.2 % (45.5-73.1); Platelet Count Result 137 k/mm3 (150-375); Red Blood Count 2.47 M/mm3 (4.2-5.4); White Blood Count 15.6 K/mm3 (4.5-10.0)
[2022-08-15 06:20] LABS: Alanine Aminotransferase 27 U/L (6-35); Albumin Level 2.5 g/dL (3.5-5.1); Alkaline Phosphatase 112 U/L (38-126); Anion Gap 2 mmol/L (8-16); Aspartate Amino Transferase 40 U/L (14-36); Bilirubin,Total 0.7 mg/dL (0.2-1.3); Blood Urea Nitrogen 7 mg/dL (7-17); Calcium 6.7 mg/dL (8.4-10.2); Carbon Dioxide 26 mmol/L (22-30); Chloride 105 mmol/L (98-107); Estimated CRCL calculation 105 ml/min; Estimated Glomerular Filt Rate > 60; Glucose 106 mg/dL (65-110); Potassium 3.5 mmol/L (3.4-5.0); Sodium 133 mmol/L (137-145)
[2022-08-15] MEDS: FOLIC ACID 1 MG/0.2 ML INJ IV PUSH (08:34)
[2022-08-15] MEDS: clonazePAM (*CRX) 0.5 MG TABLET PO ×2 (08:34→16:05)
[2022-08-15] MEDS: ESCITALOPRAM OXALATE 10 MG TABLET 20 MG PO (08:35)
[2022-08-15] MEDS: PANTOPRAZOLE SODIUM IV 40 MG VIAL IV PUSH (08:35)
[2022-08-15] MEDS: THIAMINE HCL 200 MG/2 ML VIAL 100 MG IV PUSH (08:35)
[2022-08-15] MEDS: HYDROcodone/acetaminophen (*CRX) 5-325 MG TABLET 1 TAB PO ×3 (08:47→18:07)
--- NOTE | 2022-08-15 11:38 | PM.PNGS ---
Progress Note: A&P Assessment and Plan (1) Appendicitis: Code(s): K37 - Unspecified appendicitis Status: Acute Assessment and Plan: start clears and ADAT, will get PT to work with pt to get OOB and ambulate, pain control c po analgesia Subjective Subjective Date/Time Seen: 08/15/22 11:38 feels better this am, c/o incisional soreness and low back pain radiating to bilateral LE Review of Systems Review of Systems: All systems reviewed & are unremarkable except as noted in HPI and below Exam Const: General: cooperative, comfortable and no acute distress Resp: Auscultation: clear to auscultation bilaterally Cardio: Rate: regular rate Rhythm: regular rhythm GI: Inspection: normal to inspection, distended and incision GI Palp: Yes abdominal tenderness, Yes Soft to palpation, Yes Tenderness to palpation present (GI), No Guarding due to palpation present (GI) and No Rigid due to palpation Objective Data Vital Signs Vital Signs: Vital Signs - 24 hr 08/14/22 12:01 08/14/22 13:18 08/14/22 13:30 Temperature 36.3 C L 36.8 C Pulse Rate 63 84 72 Pulse Rate [Right Radial] Respiratory Rate 16 16 17 Blood Pressure 146/86 H 94/83 L 141/97 H Pulse Oximetry 98 99 97 Oxygen Delivery Room Air Simple Face Mask Room Air Oxygen Flow Rate 10 08/14/22 13:45 08/14/22 14:00 08/14/22 14:15 Temperature Pulse Rate 75 77 75 Pulse Rate [Right Radial] Respiratory Rate 18 15 16 Blood Pressure 149/100 H 156/93 H 150/92 H Pulse Oximetry 95 95 95 Oxygen Delivery Room Air Room Air Room Air Oxygen Flow Rate 08/14/22 14:30 08/14/22 14:50 08/14/22 15:10 Temperature Pulse Rate 80 80 94 Pulse Rate [Right Radial] Respiratory Rate 13 19 15 Blood Pressure 122/94 H 126/92 H 107/84 Pulse Oximetry 94 100 Oxygen Delivery Room Air Simple Face Mask Nasal Cannula Oxygen Flow Rate 8 2 08/14/22 15:55 08/14/22 18:09 08/14/22 18:09 Temperature 35.7 C L Pulse Rate 130 H 123 H 96 Pulse Rate [Right Radial] Respiratory Rate 22 H 22 H 117 H Blood Pressure 84/40 L 89/56 L 97/80 L Pulse Oximetry 99 99 20 L Oxygen Delivery Oxygen Flow Rate 08/14/22 18:44 08/14/22 20:00 08/14/22 22:00 Temperature 36.6 C Pulse Rate 96 103 H Pulse Rate [Right Radial] Respiratory Rate 117 H 19 Blood Pressure 100/60 105/71 Pulse Oximetry 20 L 98 Oxygen Delivery Room Air Oxygen Flow Rate 08/15/22 06:00 08/15/22 08:19 08/15/22 08:00 Temperature 36.4 C Pulse Rate 108 H Pulse Rate [Right Radial] 98 Respiratory Rate 19 Blood Pressure 110/64 Pulse Oximetry 89 L 85 L Oxygen Delivery Room Air Oxygen Flow Rate 08/15/22 08:00 08/15/22 10:38 Temperature Pulse Rate Pulse Rate [Right Radial] Respiratory Rate 12 16 Blood Pressure Pulse Oximetry 91 91 Oxygen Delivery Nasal Cannula Oxygen Flow Rate 2 Intake/Output Intake/Output: Intake & Output 08/12/22 08/13/22 08/14/22 08/15/22 23:59 23:59 23:59 23:59 Intake Total 2100 2960 1060 Output Total 1000 0 Balance 2100 1960 1060 Meds/Results Medications: Active Medications Generic Name Dose Route Start Last Admin Trade Name Freq PRN Reason Stop Dose Admin Hydrocodone Bitart/Acetaminophen 1 tab 08/14/22 16:05 08/15/22 08:47 Hydrocodone/Acetaminophen (*Crx) 5-325 Mg Tablet PO 1 tab Q4H PRN Administration Pain Rated 4-6 Clonazepam 0.5 mg 08/14/22 09:00 08/15/22 08:34 Clonazepam (*Crx) 0.5 Mg Tablet PO 0.5 mg BID IRA Administration Escitalopram Oxalate 20 mg 08/14/22 09:00 08/15/22 08:35 Escitalopram Oxalate 10 Mg Tablet PO 20 mg DAILY IRA Administration Fentanyl Citrate 25 mcg 08/14/22 12:09 08/14/22 13:28 Fentanyl Citrate Inj (*Crx) 100 Mcg/2 Ml Vial IV PUSH 25 mcg Q2M PRN Administration Pain Folic Acid 1 mg 08/14/22 09:00 08/15/22 08:34 Folic Acid 1 Mg/0.2 Ml Inj IV PUSH 1 mg QAM IRA Administration Hydromorphone HCl 0.5 mg
[2022-08-15 11:59] LABS: Glucose Point of Care 116 mg/dl (65-105)
--- NOTE | 2022-08-15 13:37 | P.PNIM_ITS ---
Progress Note: A&P Assessment and Plan (1) Appendicitis: Code(s): K37 - Unspecified appendicitis Status: Acute Assessment and Plan: Patient presented to the ED on 08/14/22 with complaints of abdominal pain. * CT abdomen/pelvis showed moderate esophagitis / gastritis, hepatomegaly with steatosis, mildly dilated retrocecal appendix and possibly cystitis. * Surgery consulted and appreciate recommendations. * Patient underwent appendectomy on 08/14/2022 and pathology pending. * Continue pain control, IV fluids and antiemetics. * Continue IV Zosyn 3.375 mg IV Q6 hours. * advanced diet as tolerated. (2) Abdominal pain: Qualifiers: Abdominal location: right lower quadrant Qualified Code(s): R10.31 - Right lower quadrant pain Code(s): R10.9 - Unspecified abdominal pain Status: Acute Assessment and Plan: As above. (3) Nicotine dependence: Qualifiers: Nicotine product type: cigarettes Substance use status: uncomplicated Qualified Code(s): F17.210 - Nicotine dependence, cigarettes, uncomplicated Code(s): F17.200 - Nicotine dependence, unspecified, uncomplicated Status: Acute Assessment and Plan: Counseled to quit for approximately 5 minutes. She is considering quitting and has tried nicotine gums and patches in the past. 26 pack-year smoking history. Nicotine patch while inpatient. (4) Elevated LFTs: Code(s): R79.89 - Other specified abnormal findings of blood chemistry Status: Acute Assessment and Plan: * Likely secondary to alcohol liver disease. * Trend LFTs (5) GERD with esophagitis: Qualifiers: Esophagitis bleeding: without hemorrhage Qualified Code(s): K21.00 - Gastro-esophageal reflux disease with esophagitis, without bleeding Code(s): K21.00 - Gastro-esophageal reflux disease with esophagitis, without bleeding Status: Acute Assessment and Plan: * Noted on CT scan. * Continue PPI BID. (6) Alcohol abuse: Code(s): F10.10 - Alcohol abuse, uncomplicated Status: Chronic Assessment and Plan: * Counseled to quit drinking due to liver disease * CIWA monitoring per protocol. * Lorazepam IV 1-2 mg PRN for CIWA scoring (7) Hepatitis C: Qualifiers: Hepatic coma status: without hepatic coma Viral hepatitis chronicity: chronic Qualified Code(s): B18.2 - Chronic viral hepatitis C Code(s): B19.20 - Unspecified viral hepatitis C without hepatic coma Status: Chronic Assessment and Plan: She was referred to [facility] hepatology during her last admission and she reports has sent paperwork and has plans to seek treatment. (8) Fatty liver due to alcoholism: Code(s): K70.0 - Alcoholic fatty liver Status: Acute Assessment and Plan: * Hepatic steatosis noted on CT scan with history of heavy alcohol use. * She declined further resources to assist in alcohol abstinence. * Conseled to quit. Plan CODE STATUS: FULL CODE Disposition: Home, discharge when medically stable and symptoms improving. GI prophylaxis: Diet: NPO for surgery evaluation DVT prophylaxis: SCDs Antibiotic day: 1 Estimated LOS: 3 days Subjective Date/time seen: 08/15/22 13:37 Interval history: Postop day 1. Patient sitting up in bed talking with her some when I enter the room. Patient gave consent
--- NOTE | 2022-08-15 13:37 | PM.IMPN ---
Progress Note: A&P Assessment and Plan (1) Appendicitis: Code(s): K37 - Unspecified appendicitis Status: Acute Assessment and Plan: Patient presented to the ED on 08/14/22 with complaints of abdominal pain. CT abdomen/pelvis showed moderate esophagitis / gastritis, hepatomegaly with steatosis, mildly dilated retrocecal appendix and possibly cystitis. Surgery consulted and appreciate recommendations. Patient underwent appendectomy on 08/14/2022 and pathology pending. Continue pain control, IV fluids and antiemetics. Continue IV Zosyn 3.375 mg IV Q6 hours. advanced diet as tolerated. (2) Abdominal pain: Qualifiers: Abdominal location: right lower quadrant Qualified Code(s): R10.31 - Right lower quadrant pain Code(s): R10.9 - Unspecified abdominal pain Status: Acute Assessment and Plan: As above. (3) Nicotine dependence: Qualifiers: Nicotine product type: cigarettes Substance use status: uncomplicated Qualified Code(s): F17.210 - Nicotine dependence, cigarettes, uncomplicated Code(s): F17.200 - Nicotine dependence, unspecified, uncomplicated Status: Acute Assessment and Plan: Counseled to quit for approximately 5 minutes. She is considering quitting and has tried nicotine gums and patches in the past. 26 pack-year smoking history. Nicotine patch while inpatient. (4) Elevated LFTs: Code(s): R79.89 - Other specified abnormal findings of blood chemistry Status: Acute Assessment and Plan: Likely secondary to alcohol liver disease. Trend LFTs (5) GERD with esophagitis: Qualifiers: Esophagitis bleeding: without hemorrhage Qualified Code(s): K21.00 - Gastro-esophageal reflux disease with esophagitis, without bleeding Code(s): K21.00 - Gastro-esophageal reflux disease with esophagitis, without bleeding Status: Acute Assessment and Plan: Noted on CT scan. Continue PPI BID. (6) Alcohol abuse: Code(s): F10.10 - Alcohol abuse, uncomplicated Status: Chronic Assessment and Plan: Counseled to quit drinking due to liver disease CIWA monitoring per protocol. Lorazepam IV 1-2 mg PRN for CIWA scoring (7) Hepatitis C: Qualifiers: Hepatic coma status: without hepatic coma Viral hepatitis chronicity: chronic Qualified Code(s): B18.2 - Chronic viral hepatitis C Code(s): B19.20 - Unspecified viral hepatitis C without hepatic coma Status: Chronic Assessment and Plan: She was referred to [facility] hepatology during her last admission and she reports has sent paperwork and has plans to seek treatment. (8) Fatty liver due to alcoholism: Code(s): K70.0 - Alcoholic fatty liver Status: Acute Assessment and Plan: Hepatic steatosis noted on CT scan with history of heavy alcohol use. She declined further resources to assist in alcohol abstinence. Conseled to quit. Plan CODE STATUS: FULL CODE Disposition: Home, discharge when medically stable and symptoms improving. GI prophylaxis: Diet: NPO for surgery evaluation DVT prophylaxis: SCDs Antibiotic day: 1 Estimated LOS: 3 days Subjective Date/time seen: 08/15/22 13:37 Interval history: Postop day 1. Patient sitting up in bed talking with her some when I enter the room. Patient gave consent to discuss her medical care in front of her son. Patient states that she is having some abdominal pain at the site the surgical incision. Other than postsurgical pain she is doing much better than she was before. Patient states that pain she had on presentation subsided and she no longer feels sick. She denies nausea vomiting although she did have some postoperatively. Review of Systems Review of Systems: All systems reviewed & are unremarkable except as noted in HPI and below Exam Narrative: GENERAL: C
--- NOTE | 2022-08-15 14:01 | P.PNAN_ITS ---
Anes - Prog Note Post-Op Date/Time: 08/15/22 14:01 Cardiovascular status: normal Respiratory status: normal Airway patency: baseline Mental status: baseline Post-Op hydration status: normal Vital Signs: Last Vital Signs Temp 36.4 C 08/15/22 06:00 Pulse 78 08/15/22 11:58 Resp 16 08/15/22 10:38 BP 110/64 08/15/22 06:00 Pulse Ox 91 08/15/22 10:38 O2 Del Method Room Air 08/15/22 08:19 O2 Flow Rate 2 08/15/22 08:00 Pain Score (VAS): 10/24 I/O: Intake & Output 08/14/22 08/15/22 08/15/22 23:59 07:59 15:59 Intake Total 1060 1282 Output Total 1000 0 900 Balance 60 0 382 Laboratory Tests 08/15/22 05:40 08/15/22 05:40 08/15/22 08/15/22 08/15/22 00:35 05:40 05:40 WBC 15.6 H RBC 2.47 L Hgb 8.2 L D Hct 25.1 L MCV 101.6 H MCH 33.2 MCHC 32.7 RDW 13.0 Plt Count 137 L MPV 12.7 H Immature Gran % (Auto) 0.6 H Neut % (Auto) 63.2 Lymph % (Auto) 29.1 [place] % (Auto) 6.7 Eos % (Auto) 0.1 Baso % (Auto) 0.3 Lymph # (Auto) 4.54 H [place] # (Auto) 1.1 H Eos # (Auto) 0.0 Baso # (Auto) 0.0 Abs Immat Gran (auto) 0.10 H Absolute Neuts (auto) 9.9 H Absolute Nucleated RBC 0.0 Nucleated RBC % 0.0 Sodium 133 L Potassium 3.5 Chloride 105 Carbon Dioxide 26 Anion Gap 2 L BUN 7 Creatinine 0.50 L Estim Creat Clear Calc 105 Estimated GFR > 60 Glucose 106 POC Capillary Glucose 146 H Calcium 6.7 L Total Bilirubin 0.7 AST 40 H ALT 27 Alkaline Phosphatase 112 Total Protein 5.0 L Albumin 2.5 L 08/15/22 11:55 WBC RBC Hgb Hct MCV MCH MCHC RDW Plt Count MPV Immature Gran % (Auto) Neut % (Auto) Lymph % (Auto) [place] % (Auto) Eos % (Auto) Baso % (Auto) Lymph # (Auto) [place] # (Auto) Eos # (Auto) Baso # (Auto) Abs Immat Gran (auto) Absolute Neuts (auto) Absolute Nucleated RBC Nucleated RBC % Sodium Potassium Chloride Carbon Dioxide Anion Gap BUN Creatinine Estim Creat Clear Calc Estimated GFR Glucose POC Capillary Glucose 116 H Calcium Total Bilirubin AST ALT Alkaline Phosphatase Total Protein Albumin Post-procedural complaints: nausea (Resolved this morning) and vomiting (Resolved this morning) Patient Feedback: Patient satisfied with anesthetic care.
[2022-08-15 17:27] LABS: Glucose Point of Care 122 mg/dl (65-105)
[2022-08-15] MEDS: NICOTINE (*PBKC) 21 MG PATCH 1 PATCH TRANSDERM (18:07)
[2022-08-15] MEDS: QUEtiapine FUMARATE 100 MG TABLET PO (20:05)
[2022-08-15] MEDS: LORazepam INJ (*CRX) 2 MG/ML VIAL 1 MG IV PUSH (22:14)
[2022-08-16] MEDS: HYDROcodone/acetaminophen (*CRX) 5-325 MG TABLET 1 TAB PO ×3 (02:49→14:16)
[2022-08-16] MEDS: HYDROmorphone HCL INJ (*CRX) 1 MG/ML SYR 0.5 MG IV PUSH (06:18)
[2022-08-16 06:44] LABS: Basophils Percent Auto 0.4 % (0.2-1.2); Eosinophils Absolute Auto 0.1 K/mm3 (0-0.3); Eosinophils Percent Auto 0.8 % (0-4.4); Hematocrit 22.3 % (37.0-47.0); Hemoglobin 7.3 g/dL (12.0-15.0); Immature Granulocyte Absolute 0.02 K/mm3 (0.00-0.031); Immature Granulocyte Percent A 0.3 % (0-0.5); Lymphocytes Absolute Auto 3.35 K/mm3 (0.9-3.2); Lymphocytes Percent Auto 41.9 % (18.3-44.2); Mean Corpuscular HGB Conc 32.7 g/dl (32-36); Mean Corpuscular Hemoglobin 33.8 pg (26-34); Mean Corpuscular Volume 103.2 fl (80-100); Mean Platelet Volume 12.4 fl (7.4-10.4); Monocytes Absolute Auto 0.5 K/mm3 (0.1-0.6); Monocytes Percent Auto 6.5 % (2.6-8.5); Neutrophils Percent Auto 50.1 % (45.5-73.1); Platelet Count Result 101 k/mm3 (150-375); Red Blood Count 2.16 M/mm3 (4.2-5.4); Red Cell Distribution Width 13.1 % (11.5-14.5)
[2022-08-16 07:00] LABS: Alanine Aminotransferase 28 U/L (6-35); Albumin Level 2.7 g/dL (3.5-5.1); Alkaline Phosphatase 125 U/L (38-126); Anion Gap 2 mmol/L (8-16); Aspartate Amino Transferase 40 U/L (14-36); Bilirubin,Total 0.7 mg/dL (0.2-1.3); Blood Urea Nitrogen 4 mg/dL (7-17); Carbon Dioxide 25 mmol/L (22-30); Chloride 111 mmol/L (98-107); Estimated CRCL calculation 105 ml/min; Estimated Glomerular Filt Rate > 60; Glucose 96 mg/dL (65-110); Sodium 138 mmol/L (137-145)
--- NOTE | 2022-08-16 08:56 | PM.PNGS ---
Progress Note: A&P Assessment and Plan (1) Appendicitis: Code(s): K37 - Unspecified appendicitis Status: Acute Assessment and Plan: doing well, cont routine postop care, ok to dc home from surgical standpoint, rx for po analgesia, Colace, f/u 2 wks Subjective Subjective Date/Time Seen: 08/16/22 08:56 feels better today, some incisional soreness, neeru reg diet Review of Systems Review of Systems: All systems reviewed & are unremarkable except as noted in HPI and below Exam Const: General: cooperative, comfortable and no acute distress GI: Inspection: normal to inspection, distended and incision GI Palp: Yes abdominal tenderness, Yes Soft to palpation, Yes Tenderness to palpation present (GI), No Guarding due to palpation present (GI) and No Rigid due to palpation Objective Data Vital Signs Vital Signs: Vital Signs - 24 hr 08/15/22 10:38 08/15/22 11:58 08/15/22 14:26 Temperature 36.6 C Pulse Rate 91 Pulse Rate [Right Radial] 78 Respiratory Rate 16 20 Blood Pressure 104/63 Pulse Oximetry 91 91 Oxygen Delivery 08/15/22 16:08 08/15/22 16:00 08/15/22 22:00 Temperature 36.6 C Pulse Rate 95 Pulse Rate [Right Radial] 100 Respiratory Rate 18 Blood Pressure 129/87 Pulse Oximetry 90 Oxygen Delivery Room Air 08/15/22 20:00 Temperature Pulse Rate 95 Pulse Rate [Right Radial] Respiratory Rate 18 Blood Pressure Pulse Oximetry 90 Oxygen Delivery Room Air Intake/Output Intake/Output: Intake & Output 08/13/22 08/14/22 08/15/22 08/16/22 23:59 23:59 23:59 23:59 Intake Total 2100 2960 2482 Output Total 1000 1100 1650 Balance 2100 1960 1382 -1650 Meds/Results Medications: Active Medications Generic Name Dose Route Start Last Admin Trade Name Freq PRN Reason Stop Dose Admin Hydrocodone Bitart/Acetaminophen 1 tab 08/14/22 16:05 08/16/22 02:49 Hydrocodone/Acetaminophen (*Crx) 5-325 Mg Tablet PO 1 tab Q4H PRN Administration Pain Rated 4-6 Clonazepam 0.5 mg 08/14/22 09:00 08/15/22 16:05 Clonazepam (*Crx) 0.5 Mg Tablet PO 0.5 mg BID IRA Administration Escitalopram Oxalate 20 mg 08/14/22 09:00 08/15/22 08:35 Escitalopram Oxalate 10 Mg Tablet PO 20 mg DAILY IRA Administration Fentanyl Citrate 25 mcg 08/14/22 12:09 08/14/22 13:28 Fentanyl Citrate Inj (*Crx) 100 Mcg/2 Ml Vial IV PUSH 25 mcg Q2M PRN Administration Pain Folic Acid 1 mg 08/14/22 09:00 08/15/22 08:34 Folic Acid 1 Mg/0.2 Ml Inj IV PUSH 1 mg QAM IRA Administration Hydromorphone HCl 0.5 mg 08/14/22 01:46 08/16/22 06:18 Hydromorphone Hcl Inj (*Crx) 1 Mg/Ml Syr IV PUSH 0.5 mg Q4H PRN Administration Pain Rated 7-10 Sodium Chloride 1,000 mls @ 125 mls/hr 08/14/22 01:50 08/16/22 08:49 Normal Saline Iv IV CONT Not Given .Q8H IRA Lorazepam 1 mg 08/14/22 09:46 08/15/22 22:14 Lorazepam Inj (*Crx) 2 Mg/Ml Vial IV PUSH 1 mg Q6H PRN Administration CIWA >8 Lorazepam 2 mg 08/14/22 09:46 08/14/22 20:38 Lorazepam Inj (*Crx) 2 Mg/Ml Vial IV PUSH 2 mg Q4H PRN Administration CIWA >15 Nicotine 1 patch 08/15/22 09:00 08/15/22 18:07 Nicotine (*Pbkc) 21 Mg Patch TRANSDERM 1 patch QAM IRA Administration Ondansetron HCl 4 mg 08/14/22 01:46 08/14/22 17:06 Ondansetron Inj 4 Mg/2 Ml Vial IV PUSH 4 mg Q4H PRN Administration Nausea Pantoprazole Sodium 40 mg 08/14/22 09:00 08/15/22 08:35 Pantoprazole Sodium Iv 40 Mg Vial IV PUSH 40 mg QAM IRA Administration Polymyxin/Trimethoprim Sulfate 1 drop 08/14/22 18:00 08/15/22 20:35 Polymyxin/Trimethoprim Ophth 10 Ml Drops RIGHT EYE Not Given Q3HR IRA Quetiapine Fumarate 100 mg 08/14/22 21:00 08/15/22 20:05 Quetiapine Fumarate 100 Mg Tablet PO 100 mg HS IRA Administration Thiamine HCl 100 mg 08/14/22 09:00 08/15/22 08:35 Thiamine Hcl 200 Mg/2 Ml Vial IV PUSH 100 mg DAILY IRA Adm
[2022-08-16] MEDS: THIAMINE HCL 200 MG/2 ML VIAL 100 MG IV PUSH (09:02)
[2022-08-16] MEDS: NICOTINE (*PBKC) 21 MG PATCH 1 PATCH TRANSDERM (09:02)
[2022-08-16] MEDS: POTASSIUM CHLORIDE 20 MEQ PACKET (FOR LIQUID) 60 MEQ PO (09:02)
[2022-08-16] MEDS: PANTOPRAZOLE SODIUM IV 40 MG VIAL IV PUSH (09:02)
[2022-08-16] MEDS: clonazePAM (*CRX) 0.5 MG TABLET PO (09:02)
[2022-08-16] MEDS: ESCITALOPRAM OXALATE 10 MG TABLET 20 MG PO (09:02)
[2022-08-16] MEDS: FOLIC ACID 1 MG/0.2 ML INJ IV PUSH (09:03)
--- NOTE | 2022-08-16 13:15 | P.DS_ITS ---
DS: Admitting Diagnosis Discharge Date 08/16/22 Admitting Diagnosis Appendicitis DS: Discharge Diagnosis Discharge Diagnosis (1) Appendicitis: Code(s): K37 - Unspecified appendicitis Status: Acute Assessment and Plan: Patient presented to the ED on 08/14/22 with complaints of abdominal pain. * CT abdomen/pelvis showed moderate esophagitis / gastritis, hepatomegaly with steatosis, mildly dilated retrocecal appendix and possibly cystitis. * Surgery consulted and appreciate recommendations. * Patient underwent appendectomy on 08/14/2022 and pathology pending. * Continue pain control, IV fluids and antiemetics. * IV Zosyn 3.375 mg IV Q6 hours. * advanced diet as tolerated. (2) Abdominal pain: Qualifiers: Abdominal location: right lower quadrant Qualified Code(s): R10.31 - Right lower quadrant pain Code(s): R10.9 - Unspecified abdominal pain Status: Acute Assessment and Plan: As above. (3) Nicotine dependence: Qualifiers: Nicotine product type: cigarettes Substance use status: uncomplicated Qualified Code(s): F17.210 - Nicotine dependence, cigarettes, uncomplicated Code(s): F17.200 - Nicotine dependence, unspecified, uncomplicated Status: Acute Assessment and Plan: Counseled to quit for approximately 5 minutes. She is considering quitting and has tried nicotine gums and patches in the past. 26 pack-year smoking history. Nicotine patch while inpatient. (4) Elevated LFTs: Code(s): R79.89 - Other specified abnormal findings of blood chemistry Status: Acute Assessment and Plan: * Likely secondary to alcohol liver disease. * Trend LFTs (5) GERD with esophagitis: Qualifiers: Esophagitis bleeding: without hemorrhage Qualified Code(s): K21.00 - Gastro-esophageal reflux disease with esophagitis, without bleeding Code(s): K21.00 - Gastro-esophageal reflux disease with esophagitis, without bleeding Status: Acute Assessment and Plan: * Noted on CT scan. * Continue PPI BID. (6) Alcohol abuse: Code(s): F10.10 - Alcohol abuse, uncomplicated Status: Chronic Assessment and Plan: * Counseled to quit drinking due to liver disease * CIWA monitoring per protocol. * Lorazepam IV 1-2 mg PRN for CIWA scoring (7) Hepatitis C: Qualifiers: Hepatic coma status: without hepatic coma Viral hepatitis chronicity: chronic Qualified Code(s): B18.2 - Chronic viral hepatitis C Code(s): B19.20 - Unspecified viral hepatitis C without hepatic coma Status: Chronic Assessment and Plan: She was referred to [facility] hepatology during her last admission and she reports has sent paperwork and has plans to seek treatment. (8) Fatty liver due to alcoholism: Code(s): K70.0 - Alcoholic fatty liver Status: Acute Assessment and Plan: * Hepatic steatosis noted on CT scan with history of heavy alcohol use. * She declined further resources to assist in alcohol abstinence. * Conseled to quit. Plan CODE STATUS: FULL CODE Disposition: Home, discharge when medically stable and symptoms improving. GI prophylaxis: Diet: NPO for surgery evaluation DVT prophylaxis: SCDs Antibiotic day: 1 Estimated LOS: 3 days DS: Summary Hospital Course Reason for hospitalization: appendicitis Ho
--- NOTE | 2022-08-16 13:15 | PM.DS ---
DS: Admitting Diagnosis Discharge Date 08/16/22 Admitting Diagnosis Appendicitis DS: Discharge Diagnosis Discharge Diagnosis (1) Appendicitis: Code(s): K37 - Unspecified appendicitis Status: Acute Assessment and Plan: Patient presented to the ED on 08/14/22 with complaints of abdominal pain. CT abdomen/pelvis showed moderate esophagitis / gastritis, hepatomegaly with steatosis, mildly dilated retrocecal appendix and possibly cystitis. Surgery consulted and appreciate recommendations. Patient underwent appendectomy on 08/14/2022 and pathology pending. Continue pain control, IV fluids and antiemetics. IV Zosyn 3.375 mg IV Q6 hours. advanced diet as tolerated. (2) Abdominal pain: Qualifiers: Abdominal location: right lower quadrant Qualified Code(s): R10.31 - Right lower quadrant pain Code(s): R10.9 - Unspecified abdominal pain Status: Acute Assessment and Plan: As above. (3) Nicotine dependence: Qualifiers: Nicotine product type: cigarettes Substance use status: uncomplicated Qualified Code(s): F17.210 - Nicotine dependence, cigarettes, uncomplicated Code(s): F17.200 - Nicotine dependence, unspecified, uncomplicated Status: Acute Assessment and Plan: Counseled to quit for approximately 5 minutes. She is considering quitting and has tried nicotine gums and patches in the past. 26 pack-year smoking history. Nicotine patch while inpatient. (4) Elevated LFTs: Code(s): R79.89 - Other specified abnormal findings of blood chemistry Status: Acute Assessment and Plan: Likely secondary to alcohol liver disease. Trend LFTs (5) GERD with esophagitis: Qualifiers: Esophagitis bleeding: without hemorrhage Qualified Code(s): K21.00 - Gastro-esophageal reflux disease with esophagitis, without bleeding Code(s): K21.00 - Gastro-esophageal reflux disease with esophagitis, without bleeding Status: Acute Assessment and Plan: Noted on CT scan. Continue PPI BID. (6) Alcohol abuse: Code(s): F10.10 - Alcohol abuse, uncomplicated Status: Chronic Assessment and Plan: Counseled to quit drinking due to liver disease CIWA monitoring per protocol. Lorazepam IV 1-2 mg PRN for CIWA scoring (7) Hepatitis C: Qualifiers: Hepatic coma status: without hepatic coma Viral hepatitis chronicity: chronic Qualified Code(s): B18.2 - Chronic viral hepatitis C Code(s): B19.20 - Unspecified viral hepatitis C without hepatic coma Status: Chronic Assessment and Plan: She was referred to [facility] hepatology during her last admission and she reports has sent paperwork and has plans to seek treatment. (8) Fatty liver due to alcoholism: Code(s): K70.0 - Alcoholic fatty liver Status: Acute Assessment and Plan: Hepatic steatosis noted on CT scan with history of heavy alcohol use. She declined further resources to assist in alcohol abstinence. Conseled to quit. Plan CODE STATUS: FULL CODE Disposition: Home, discharge when medically stable and symptoms improving. GI prophylaxis: Diet: NPO for surgery evaluation DVT prophylaxis: SCDs Antibiotic day: 1 Estimated LOS: 3 days DS: Summary Hospital Course Reason for hospitalization: appendicitis Hospital Course: This is a 37-year-old female with history of hepatitis-C, alcohol abuse, and tobacco dependence. Patient presented to ED for abdominal pain for approximately 1 week on 08/14/2022. Patient had associated fever, nausea vomiting, chills and sweats. Patient's labs are unremarkable. CT abdomen pelvis revealed early signs of appendicitis. Patient was started on Zosyn and IV pain medications as needed. Patient underwent appendectomy on 08/14/2022. Patient tolerated surgery well. Diet was advanced as tolerated. Adolfo
[2022-08-16 13:45] VITALS: BP 120/73; PULSE 86; RESP 16; TEMP 36.3; O2SAT 97
== END 2022-08-16 15:10 | disposition home or self-care (01) | DRG 234 ==
LOC: ANHED 20:21 → ANH3MEDSUR 08-14 02:14
PROVIDERS: Surgery; Admitting Provider Internal Medicine; Emergency Provider General Practice; Visit Provider Internal Medicine Critical Care Medicine
PROC: 0DTJ4ZZ Resection of Appendix, Percutaneous Endoscopic Approach (ICD-10-PCS; CPT 44970; principal; 2022-08-14 15:30)
DX: K35.80 Unspecified acute appendicitis (principal); K70.0 Alcoholic fatty liver; F41.8 Other specified anxiety disorders; F10.10 Alcohol abuse, uncomplicated; F60.3 Borderline personality disorder; K21.00 Gastro-esophageal reflux disease with esophagitis, without bleeding; B18.2 Chronic viral hepatitis C; F17.210 Nicotine dependence, cigarettes, uncomplicated
CPT/HCPCS: 36415; 74177; 76705; 80053; 80307; 81001; 81025; 82948; 83690; 85025; 85610; 85730; 87491; 87591; 88304; 93005; 96361; 96365; 96366; 96374; 96375; 96376; 97110; 97116; 97161; 99285; A9270; C9113; G0378; G0379; J0131; J0330; J1100; J1170; J1200; J1885; J2060; J2250; J2270; J2405; J2543; J2704; J3010; J3411; J7030; J7120; Q9967; U0003; U0005

== ENCOUNTER 2022-08-18 13:07 | Inpatient (IN) | payer MEDICAID, SELFPAY ==
[2022-08-18] VITALS (19 sets, daily range): BP systolic 138–161; BP diastolic 87–93; PULSE 57–81; RESP 13–22; TEMP 35.8–36.7; O2SAT 96–98; BMI 28.3
--- NOTE | ~2022-08-18 | CT_ITS ---
EXAMINATION: CT abdomen pelvis w con INDICATION: Nausea and vomiting, recent appendectomy TECHNIQUE: Computed tomographic images of the abdomen and pelvis were obtained after the administrati on of 100 cc of Omnipaque 350 intravenous contrast. The dose-length product (DLP) was 406.73 mGy-cm. Automated exposure control and iterative reconstruction technique were employed. COMPARISON: 06/12/2023 FINDINGS: Minimal dependent atelectasis is present in the lung bases. The heart size is normal. The l iver is diffusely low in attenuation when compared with the spleen, consistent with hepatic steatosis . The spleen, pancreas, gallbladder, and adrenal glands are normal. The kidneys are unremarkable. The re is a large volume of relatively high density ascites. There are internal areas of loculated fluid attenuation of unclear significance. Deep in the pelvis, fluid demonstrates greatest attenuation, con cerning for hematoma. There are areas of contrast enhancement in the region of the left adnexa which may relate to the ovary. Changes of interval appendectomy are noted. No pathologically enlarged abdom inal or pelvic lymph nodes are identified. No free intraperitoneal gas or evidence of bowel obstructi on. IMPRESSION: 1. Large volume of high attenuation ascites, particularly in the deep pelvis, concerning for internal bleeding/hematoma. Surgical evaluation is recommended. These findings and recommendations were discu ssed with Dr. Sol Latif MD in the Emergency Department at 1555 hours on 08/18/2022. Reviewed, dictated and finalized at location [facility] IMPRESSION: 1. Large volume of high attenuation ascites, particularly in the deep pelvis, c oncerning for internal bleeding/hematoma. Surgical evaluation is recommended. T hese findings and recommendations were discussed with Dr. Sol Latif MD in the Emergency Department at 1555 hours on 08/18/2022.
--- NOTE | 2022-08-18 13:14 | ED.NAVMDI ---
HPI - Nausea/Vomiting/Diarrhea General Chief complaint: Nausea/Vomiting/Diarrhea Stated complaint: N/V Time Seen by Provider: 08/18/22 13:11 Source: patient, EMS and RN notes reviewed Mode of arrival: EMS Limitations: no limitations History of Present Illness HPI Narrative: Patient is a 37 years old white female came to the emergency room brought from home by ambulance complaining of diffuse abdominal pain, nausea vomiting unable to keep anything down intermittently since she had appendectomy September 11, 2022, today been vomiting every few minutes. She denies any fever, chills, diarrhea. Also complaining of diffuse abdominal pain. Related Data Home Medications Medication Instructions Recorded Confirmed clonazepam 0.5 mg tablet 0.5 mg PO BID 01/19/20 08/14/22 escitalopram oxalate 20 mg tablet 20 mg PO DAILY 11/14/20 08/14/22 quetiapine 100 mg tablet 100 mg PO HS 12/08/21 08/14/22 Allergies Allergy/AdvReac Type Severity Reaction Status Date / Time prochlorperazine Allergy Intermediate Swelling Verified 08/14/22 12:10 trazodone Allergy Intermediate legs seize Verified 08/14/22 12:10 up haloperidol [From Haldol] Allergy Swelling Verified 08/14/22 12:10 of Lip/Tongue/Throat Review of Systems Review of Systems: All systems reviewed & are unremarkable except as noted in HPI and below PMFSH Past Medical History Medical History Alcohol abuse Anxiety and depression Borderline personality disorder Bronchitis C. difficile colitis Fatty liver due to alcoholism Hepatitis C Nicotine dependence Surgical History Surgical History No significant past surgical history Family History Family History Other No significant family history Social History Social History Social History: Surrogate decision maker: Stacy Herrera, grandmother. Code status: Full code. Smoking packs per day: 1 Smoking cigarettes per day: 20.0 Years smoked: 23 Smoking pack-years: 23.00 Smoking status: Current every day smoker Tobacco type: cigarettes Alcohol intake: current Drinks per week: 14 Alcohol use details: 1-2 twisted tea after work everynight Substance use: current Substance use type: IV drugs and prescription drug Other substance usage details: clonazepam, seroquel, lexapro; reports IV drug use in the past 15 years ago Lack of Transportation: No Lack of Food: Often True Current Housing: I Have Housing Concerned About Future Housing: No Difficulty Paying Gas/Electric Bills: No Difficulty Paying for Meds: No Currently Unemployed: No Education: Grade School Difficulty w/ Childcare or Family Care: No Spiritual care concerns: No Exam Narrative: General appearance: Well-developed, well-nourished Skin: Pale skin, abdominal surgical scar dry and clean Head: Normocephalic, nontraumatic Eyes: Pale conjunctiva ENT: Oropharynx normal, ears normal, nose normal Neck: Supple, nontender Chest and respiratory: Airway patent, no respiratory distress, no accessory muscle use Heart: Regular rate/rhythm Abdomen: Soft, diffuse tenderness mainly right lower quadrant, distended , no organomegaly, quiet bowel sounds Vascular: Normal peripheral pulses, normal capillary refill. Musculoskeletal: Normal range of motion, nontender back Neurologic: Alert and oriented ?3, [employer] is normal as tested, no gross motor deficit Course Consultations Consultation #1: DR MCCABE Date: 08/18/22 Time: 16:28 Vital Signs Vital
[2022-08-18 14:26] LABS: Basophils Percent Auto 0.3 % (0.2-1.2); Eosinophils Absolute Auto 0.1 K/mm3 (0-0.3); Eosinophils Percent Auto 0.6 % (0-4.4); Hematocrit 26.7 % (37.0-47.0); Hemoglobin 9.2 g/dL (12.0-15.0); Immature Granulocyte Absolute 0.07 K/mm3 (0.00-0.031); Immature Granulocyte Percent A 0.7 % (0-0.5); Lymphocytes Absolute Auto 2.49 K/mm3 (0.9-3.2); Lymphocytes Percent Auto 23.8 % (18.3-44.2); Mean Corpuscular HGB Conc 34.5 g/dl (32-36); Mean Corpuscular Hemoglobin 34.7 pg (26-34); Mean Corpuscular Volume 100.8 fl (80-100); Mean Platelet Volume 11.8 fl (7.4-10.4); Monocytes Absolute Auto 0.5 K/mm3 (0.1-0.6); Monocytes Percent Auto 4.4 % (2.6-8.5); Neutrophils Absolute Auto 7.4 K/mm3 (1.3-6.7); Neutrophils Percent Auto 70.2 % (45.5-73.1); Platelet Count Result 172 k/mm3 (150-375); Red Blood Count 2.65 M/mm3 (4.2-5.4); Red Cell Distribution Width 13.5 % (11.5-14.5); White Blood Count 10.5 K/mm3 (4.5-10.0)
[2022-08-18] MEDS: HYDROmorphone HCL INJ (*CRX) 1 MG/ML SYR 0.5 MG IV PUSH ×3 (14:28→19:39)
[2022-08-18] MEDS: ONDANSETRON INJ 4 MG/2 ML VIAL IV PUSH ×2 (14:29→21:14)
[2022-08-18] MEDS: SODIUM CHLORIDE 0.9% IV 2,000 ML 999 ML IV CONT (14:29)
[2022-08-18 14:42] LABS: Alanine Aminotransferase 30 U/L (6-35); Albumin Level 3.6 g/dL (3.5-5.1); Alkaline Phosphatase 160 U/L (38-126); Anion Gap 4 mmol/L (8-16); Aspartate Amino Transferase 50 U/L (14-36); Bilirubin,Total 1.6 mg/dL (0.2-1.3); Blood Urea Nitrogen 3 mg/dL (7-17); Calcium 8.8 mg/dL (8.4-10.2); Carbon Dioxide 31 mmol/L (22-30); Chloride 106 mmol/L (98-107); Estimated CRCL calculation 105 ml/min; Estimated Glomerular Filt Rate > 60; Glucose 108 mg/dL (65-110); Lipase 55 U/L (23-300); Potassium 2.7 mmol/L (3.4-5.0); Sodium 141 mmol/L (137-145)
[2022-08-18] MEDS: POTASSIUM CHLORIDE INJ 40 MEQ in SODIUM CHLORIDE 0.9% IV 500 ML 130 MEQ IVPB ×2 (15:13→22:39)
--- NOTE | 2022-08-18 17:45 | PM.IMHP ---
H&P: HPI History of Present Illness Date/Time: 08/18/22 17:45 Chief Complaint: Nausea and vomiting. Narrative: This is a 37-year-old female smoker with history of C diff colitis, hepatitis C, fatty liver, depression, and anxiety who presented to the emergency department via EMS from home for evaluation of nausea and vomiting. Patient provides the following history. She was discharged from the hospital 2 days ago status post appendectomy on 08/14/2022. She reports having ?1 decent day? since her surgery but she continues to have pain, poor appetite, nausea, and daily episodes of emesis. She feels weaker and weaker as each day passes. The last couple of days she has noticed an increase in abdominal distension and tenderness in the pelvic region but she has difficulties describing. She has been taking Vicodin at home without a whole lot of benefit. She has not had fever, chills, or sweats. She denies chest pain shortness a breath. No cold or flu symptoms. She has had some loose stools but nothing significant and she denies constipation. No urinary symptoms. Vital signs were stable on arrival to the ED. pertinent labs include a WBC count of 10.5, hemoglobin 9.2, potassium 2.7, total bilirubin 1.6, AST 50, ALT 30, alkaline phosphatase 160, lipase 55. Her hemoglobin dropped precipitously following surgery but has been mostly stable. She has not noticed any blood in her stool or vomitus. CT of the abdomen and pelvis showed a large volume of high attenuation ascites particularly in the deep pelvis which is concerning for internal bleeding/hematoma. Dr. Latif, attending ED physician, reviewed the case with Dr. Johnson and will consult. Review of Systems Review of Systems: Twelve systems were reviewed and are negative except for as per HPI. [facility] Past Medical History Medical History (Updated 08/18/22 @ 18:26 by Lu Ramires PA-C) Alcohol abuse Anxiety and depression Borderline personality disorder Bronchitis C. difficile colitis Fatty liver due to alcoholism Hepatitis C Nicotine dependence Surgical History Surgical History (Updated 08/18/22 @ 22:11 by Lu Ramires PA-C) History of laparoscopic appendectomy (08/14/22) Family History Family History Grandparent Skin cancer Hypertension Grandparent Thyroid cancer Diabetes mellitus Grandparent Breast cancer Father Acute myocardial infarction Hypertension Mother Epilepsy Colon cancer Pt believes mother had colon cancer Hypertension Social History Social History Social History: Surrogate decision maker: Stacy Herrera, grandmother. Code status: Full code. Smoking packs per day: 1 Smoking cigarettes per day: 20.0 Years smoked: 25 Smoking pack-years: 25.00 Smoking status: Heavy tobacco smoker Tobacco type: cigarettes Alcohol intake: former Drinks per week: 14 Alcohol use details: 1-2 twisted tea after work everynight Substance use: former Substance use type: IV drugs and prescription drug Other substance usage details: clonazepam, seroquel, lexapro; reports IV drug use in the past 15 years ago Lack of Transportation: No Lack of Food: Sometimes True Current Housing: I Have Housing Concerned About Future Housing: No Difficulty Paying Gas/Electric Bills: No Difficulty Paying for Meds: YES Currently Unemployed: No Education: High School Diploma/GED Difficulty w/ Childcare or Family Care: No Spiritual care concerns: No Meds Home Medications and Allergies Home Medications Medication Instructions Recorded Confirmed Type clonazepam 0.5 mg tablet 0.5 mg PO BID 01/19/20 08/18/22 History escitalopram oxalate 20 mg tablet 20 mg PO DAILY 11/14/20 08/18/22 History quetiapine 100 mg tablet 100 mg PO HS 12/08/21 08/18/22 History polymyxin B sulfate 10,000 1 drp RIGHT EYE Q3H 7 days #10 mL
--- NOTE | 2022-08-18 18:30 | PC.NURSE ---
pts iv remains very positional. 2nd liter ns hung and infusing intermittently depending on pts position. continue to have difficulty with iv pump potassium due to pt changing positions.
--- NOTE | 2022-08-18 21:12 | PC.NURSE ---
This patient, María Painter, was admitted to 3 [facility] Surg Room 320-01. Patient/family oriented to hospital policies and general routines including ID bracelet, bed and alarms, visiting hours, pain management, procedures, bathroom and other care routines, personal items, smoking policy, room service/diet, and visiting hours. Information on how to activate the Rapid Response Team has been discussed. Patient/Family are encouraged to report perceived risks to care and to ask questions if they do not understand what they are told or what they should do.
[2022-08-18] MEDS: LACTATED RINGERS 1,000 ML 125 ML IV CONT (21:14)
[2022-08-18 21:27] LABS: Hematocrit 27.6 % (37.0-47.0); Hemoglobin 9.2 g/dL (12.0-15.0)
[2022-08-18 21:45] LABS: Anion Gap 4 mmol/L (8-16); Blood Urea Nitrogen 3 mg/dL (7-17); Calcium 7.6 mg/dL (8.4-10.2); Carbon Dioxide 28 mmol/L (22-30); Chloride 106 mmol/L (98-107); Estimated CRCL calculation 121 ml/min; Estimated Glomerular Filt Rate > 60; Glucose 80 mg/dL (65-110); Magnesium 1.9 mg/dL (1.6-2.3); Potassium 2.9 mmol/L (3.4-5.0); Sodium 138 mmol/L (137-145)
[2022-08-18] MEDS: LORazepam INJ (*CRX) 2 MG/ML VIAL 0.5 MG IV PUSH (22:39)
[2022-08-19] VITALS: BP 157/87; PULSE 65; RESP 20; TEMP 36.3; O2SAT 97
[2022-08-19] MEDS: HYDROmorphone HCL INJ (*CRX) 1 MG/ML SYR 0.5 MG IV PUSH ×2 (00:47→04:50)
[2022-08-19] MEDS: ONDANSETRON INJ 4 MG/2 ML VIAL IV PUSH ×3 (01:41→16:23)
[2022-08-19] MEDS: MORPHINE SULFATE (*CRX) 4 MG/ML INJ IV PUSH ×5 (02:16→20:46)
[2022-08-19 02:20] LABS: Hematocrit 25.3 % (37.0-47.0); Hemoglobin 8.8 g/dL (12.0-15.0)
[2022-08-19 04:00] VITALS: BP 152/109; PULSE 68; RESP 16; TEMP 36.3; O2SAT 97
[2022-08-19] MEDS: LORazepam INJ (*CRX) 2 MG/ML VIAL 0.5 MG IV PUSH (04:42)
[2022-08-19 06:28] LABS: Hematocrit 28.2 % (37.0-47.0); Hemoglobin 9.5 g/dL (12.0-15.0); Mean Corpuscular HGB Conc 33.7 g/dl (32-36); Mean Corpuscular Hemoglobin 34.4 pg (26-34); Mean Corpuscular Volume 102.2 fl (80-100); Mean Platelet Volume 11.9 fl (7.4-10.4); Platelet Count Result 186 k/mm3 (150-375); Red Blood Count 2.76 M/mm3 (4.2-5.4); Red Cell Distribution Width 14.5 % (11.5-14.5); White Blood Count 12.7 K/mm3 (4.5-10.0)
[2022-08-19 06:37] LABS: Alanine Aminotransferase 29 U/L (6-35); Albumin Level 3.6 g/dL (3.5-5.1); Alkaline Phosphatase 150 U/L (38-126); Anion Gap 6 mmol/L (8-16); Aspartate Amino Transferase 49 U/L (14-36); Bilirubin,Total 1.9 mg/dL (0.2-1.3); Blood Urea Nitrogen 3 mg/dL (7-17); Calcium 7.7 mg/dL (8.4-10.2); Carbon Dioxide 26 mmol/L (22-30); Chloride 103 mmol/L (98-107); Estimated CRCL calculation 121 ml/min; Estimated Glomerular Filt Rate > 60; Glucose 101 mg/dL (65-110); Magnesium 1.8 mg/dL (1.6-2.3); Potassium 3.2 mmol/L (3.4-5.0); Sodium 135 mmol/L (137-145)
[2022-08-19] MEDS: LACTATED RINGERS 1,000 ML 125 ML IV CONT ×2 (08:10→16:22)
[2022-08-19 10:00] VITALS: BP 160/98; PULSE 63; RESP 18; TEMP 36.4; O2SAT 97
--- NOTE | 2022-08-19 10:22 | PM.CNGS ---
Assessment and Plan Assessment and plan (1) Acute blood loss anemia: Code(s): D62 - Acute posthemorrhagic anemia Status: Acute Assessment and Plan: her hemoglobin and hematocrit appear stable since being admitted. There does not appear to be any concern for needing a repeat operation at this time. Will continue monitoring for any signs of recurrent bleeding. Continue trying to treat electrolyte derangements and nausea and vomiting. Will allow clear liquids today. Could advance diet once nausea and vomiting resolved. (2) History of laparoscopic appendectomy: Onset Date: 08/14/22 Code(s): Z90.49 - Acquired absence of other specified parts of digestive tract Status: Acute (3) Hypokalemia: Code(s): E87.6 - Hypokalemia Status: Acute (4) Nausea and vomiting: Code(s): R11.2 - Nausea with vomiting, unspecified Status: Acute History of Present Illness Consult details Consult date: 08/19/22 Reason for consult: other ( postoperative complications) Requesting physician: Sol Latif MD Narrative: this is a 37-year-old woman who is readmitted for electrolyte abnormalities, nausea and vomiting, and anemia after recently being hospitalized for acute appendicitis. I am asked to re-evaluate the patient for any potential concerns related to her recent surgery. She underwent laparoscopic appendectomy for acute appendicitis on 08/14/[address] León. She has a history of hepatitis C and possible cirrhosis, and her hemoglobin did drop postoperatively but then appeared to be stable the following day after surgery. A repeat CT done yesterday shows evidence of possible bleeding or hematoma. Her H&H has been monitored since being admitted last night and this appears to be stable. Patient mostly has been complaining of continued difficulty with nausea and vomiting. She has been passing flatus and moving her bowels. She denies any fevers or chills. Review of Systems Review of Systems: All systems reviewed & are unremarkable except as noted in HPI and below Constitutional: Constitutional: Denies chills and Denies fever(s) Eyes: Eyes: Denies change in vision ENT: Denies hearing loss, Denies neck pain and Denies sore throat Cardiovascular: Cardiovascular: Denies chest pain and Denies dyspnea Respiratory: Respiratory: Denies cough, Denies dyspnea and Denies wheezing Gastrointestinal: Gastrointestinal: Reports as per HPI Genitourinary: Genitourinary: Denies hematuria and Denies dysuria Musculoskeletal: Musculoskeletal: Denies arthralgias, Denies joint swelling and Denies neck pain Allergic/Immunologic: Allergic/Immunologic: Denies wheezing PMFSH Past Medical History Medical History (Updated 08/19/22 @ 10:33 by Jason Johnson DO) Alcohol abuse Anxiety and depression Borderline personality disorder Bronchitis C. difficile colitis Fatty liver due to alcoholism Hepatitis C Nicotine dependence Surgical History Surgical History (Updated 08/19/22 @ 10:33 by Jason Johnson DO) History of laparoscopic appendectomy (08/14/22) Family History Family History Grandparent Skin cancer Hypertension Grandparent Thyroid cancer Diabetes mellitus Grandparent Breast cancer Father Acute myocardial infarction Hypertension Mother Epilepsy Colon cancer Pt believes mother had colon cancer Hypertension Social History Social History Social History: Surrogate decision maker: Stacy Herrera, grandmother. Code status: Full code. Smoking packs per day: 1 Smoking cigarettes per day: 20.0 Years smoked: 25 Smoking pack-years: 25.00 Smoking status: Heavy tobacco smoker Tobacco type: cigarettes Alcohol intake: former Drinks per week: 14 Alcohol use details: 1-2 twisted tea after work everynight Substance use: former Substan
[2022-08-19 14:00] VITALS: BP 130/86; PULSE 72; RESP 16; TEMP 36.8; O2SAT 94
--- NOTE | 2022-08-19 14:50 | PM.IMPN ---
Progress Note: A&P Assessment and Plan (1) Post-operative complication: Code(s): T81.9XXA - Unspecified complication of procedure, initial encounter Status: Acute Assessment and Plan: The patient presented to the emergency department for evaluation of ongoing abdominal pain, nausea, daily vomiting, and distension. Labs, imaging, and all reports were personally reviewed. CT showed a large volume of high attenuation ascites in the pelvis concerning for internal bleeding/hematoma. Her hemoglobin and hematocrit are stable since postop day 1 and is unlikely that she is continuing to actively bleed. General surgery consulted and appreciate recommendations. Patient put back on clear liquid diet. Analgesics as needed. Anti-emetics as needed. Monitor H&H (2) Acute blood loss anemia: Code(s): D62 - Acute posthemorrhagic anemia Status: Acute Assessment and Plan: see above Monitor H&H (3) Hypokalemia: Code(s): E87.6 - Hypokalemia Status: Acute Assessment and Plan: Patient presented with a potassium of 2.7 in the ED. Replenish K+ as nessessary Continue to monitor Mg stable (4) Elevated LFTs: Code(s): R79.89 - Other specified abnormal findings of blood chemistry Status: Acute Assessment and Plan: Total bilirubin, AST, and alkaline phosphatase are a little elevated but not significantly so. She has a history of hepatitis C and fatty liver disease Monitor these for now. Subjective Date/time seen: 08/19/22 14:50 Interval history: Patient laying in bed resting. She states that she had emesis all throughout the night and did not sleep at all. Her pain and nausea are better this morning. She is still passing gas and having bowel movements. Denies CP, SOB, chills, body aches, and dizziness. Review of Systems Review of Systems: All systems reviewed & are unremarkable except as noted in HPI and below Exam Narrative: GENERAL: Comfortable, no acute distress HENMT: moist mucous membranes EYES: EOM intact b/l NECK: no lymphadenopathy RESPIRATORY: clear to auscultation CARDIO: RRR GI: soft, bowel sounds present, tenderness to palpation although when distracting the patient with conversation she did not wince when her abdomen was lightly and deeply palpated. Surgical incisions healing nicely and no signs of infection. SKIN: no rashes EXTREMITIES: no edema, redness or tenderness Objective Data Vital Signs Vital Signs: Vital Signs - 24 hr 08/18/22 16:20 08/18/22 16:31 08/18/22 16:47 Temperature Pulse Rate 66 62 59 L Respiratory Rate 17 21 H 13 Blood Pressure Pulse Oximetry Oxygen Delivery 08/18/22 17:00 08/18/22 17:19 08/18/22 17:42 Temperature Pulse Rate 65 61 81 Respiratory Rate 14 17 21 H Blood Pressure Pulse Oximetry Oxygen Delivery 08/18/22 17:53 08/18/22 18:03 08/18/22 18:20 Temperature Pulse Rate 61 59 L 65 Respiratory Rate 13 17 21 H Blood Pressure Pulse Oximetry 98 96 Oxygen Delivery 08/18/22 18:37 08/18/22 18:46 08/18/22 19:01 Temperature Pulse Rate 59 L 63 65 Respiratory Rate 14 17 18 Blood Pressure Pulse Oximetry Oxygen Delivery 08/18/22 19:30 08/18/22 20:00 08/19/22 00:00 Temperature 96.5 F L 97.3 F L Pulse Rate 61 59 L 65 Respiratory Rate 16 20 20 Blood Pressure 138/87 161/93 H 157/87 H Pulse Oximetry 98 96 97 Oxygen Delivery 08/19/22 04:00 08/19/22 08:00 08/19/22 10:00 Temperature 97.4 F L 97.6 F Pulse Rate 68 63 Respiratory Rate 16 18 Blood Pressure 152/109 H 160/98 H Pulse Oximetry 97 97 Oxygen Delivery Room Air 08/19/22 14:00 Temperature 98.2 F Pulse Rate 72 Respiratory Rate 16 Blood Pressure 130/86 Pulse Oximetry 94 Oxygen Delivery Intake/Output Intake/Output: Intake & Output 08/16/22 08/17/22 08/18/22 08/19/22 23:59 23:59 23:59 23:59 Intake Total 1488
[2022-08-19] MEDS: POTASSIUM CHLORIDE 20 MEQ PACKET (FOR LIQUID) 60 MEQ PO (16:22)
[2022-08-19 18:30] VITALS: BP 140/93; PULSE 80; RESP 16; TEMP 36.8; O2SAT 97
[2022-08-19] MEDS: PROMETHAZINE HCL 25 MG/ML AMPUL 12.5 MG IV PUSH (20:46)
[2022-08-19 21:17] VITALS: BP 170/110; PULSE 65; RESP 16; TEMP 36.6; O2SAT 97
[2022-08-20] MEDS: ONDANSETRON INJ 4 MG/2 ML VIAL IV PUSH ×4 (02:03→15:11)
[2022-08-20] MEDS: MORPHINE SULFATE (*CRX) 4 MG/ML INJ IV PUSH ×4 (02:03→15:12)
[2022-08-20] MEDS: LACTATED RINGERS 1,000 ML 125 ML IV CONT ×2 (02:04→15:22)
[2022-08-20 05:32] VITALS: BP 141/98; PULSE 67; RESP 20; TEMP 36.4; O2SAT 96
[2022-08-20 06:31] LABS: Hematocrit 30.9 % (37.0-47.0); Hemoglobin 10.6 g/dL (12.0-15.0); Mean Corpuscular HGB Conc 34.3 g/dl (32-36); Mean Corpuscular Hemoglobin 34.5 pg (26-34); Mean Corpuscular Volume 100.7 fl (80-100); Mean Platelet Volume 11.5 fl (7.4-10.4); Platelet Count Result 250 k/mm3 (150-375); Red Blood Count 3.07 M/mm3 (4.2-5.4); Red Cell Distribution Width 14.9 % (11.5-14.5); White Blood Count 13.5 K/mm3 (4.5-10.0)
[2022-08-20 06:40] LABS: INR 1.1; Prothrombin Time 13.6 Seconds (11.1-14.7)
[2022-08-20 06:41] LABS: Partial Thromboplastin Time 30.1 SECONDS (22.3-36.8)
[2022-08-20 06:45] LABS: Anion Gap 2 mmol/L (8-16); Blood Urea Nitrogen 5 mg/dL (7-17); Calcium 8.3 mg/dL (8.4-10.2); Carbon Dioxide 29 mmol/L (22-30); Chloride 103 mmol/L (98-107); Estimated CRCL calculation 102 ml/min; Estimated Glomerular Filt Rate > 60; Glucose 115 mg/dL (65-110); Potassium 3.2 mmol/L (3.4-5.0); Sodium 134 mmol/L (137-145)
--- NOTE | 2022-08-20 09:09 | PM.PNGS ---
Progress Note: A&P Assessment and Plan (1) History of laparoscopic appendectomy: Onset Date: 08/14/22 Code(s): Z90.49 - Acquired absence of other specified parts of digestive tract Status: Acute Assessment and Plan: pain, N/V improved, will ADAT, encourage OOB, home soon Subjective Subjective Date/Time Seen: 08/20/22 09:09 feels better, still c some incisional soreness, neeru clears, +bowel fxn Review of Systems Review of Systems: All systems reviewed & are unremarkable except as noted in HPI and below Exam Const: General: cooperative, comfortable and no acute distress GI: Inspection: normal to inspection, non-distended and incision GI Palp: Yes abdominal tenderness, Yes Soft to palpation, Yes Tenderness to palpation present (GI), No Guarding due to palpation present (GI) and No Rigid due to palpation Objective Data Vital Signs Vital Signs: Vital Signs - 24 hr 08/19/22 10:00 08/19/22 14:00 08/19/22 18:30 Temperature 36.4 C 36.8 C 36.8 C Pulse Rate 63 72 80 Respiratory Rate 18 16 16 Blood Pressure 160/98 H 130/86 140/93 H Pulse Oximetry 97 94 97 08/19/22 21:17 08/20/22 05:32 Temperature 36.6 C 36.4 C L Pulse Rate 65 67 Respiratory Rate 16 20 Blood Pressure 170/110 H 141/98 H Pulse Oximetry 97 96 Intake/Output Intake/Output: Intake & Output 08/17/22 08/18/22 08/19/22 08/20/22 23:59 23:59 23:59 23:59 Intake Total 3680 1490 Output Total 80 Balance 3600 1490 Meds/Results Medications: Active Medications Generic Name Dose Route Start Last Admin Trade Name Freq PRN Reason Stop Dose Admin Acetaminophen 650 mg 08/18/22 22:21 Acetaminophen 325 Mg Tablet PO Q6H PRN Mild Pain (1-3) or Fever Hydrocodone Bitart/Acetaminophen 1 tab 08/18/22 22:21 Hydrocodone/Acetaminophen (*Crx) 5-325 Mg Tablet PO Q6H PRN Pain Rated 4-6 Hydromorphone HCl 0.5 mg 08/18/22 22:21 08/19/22 04:50 Hydromorphone Hcl Inj (*Crx) 1 Mg/Ml Syr IV PUSH 0.5 mg Q3H PRN Administration Pain Rated 7-10 Lactated Ringer's 1,000 mls @ 125 mls/hr 08/18/22 18:25 08/20/22 02:04 Lr - Lactated Ringers Iv IV CONT 125 mls/hr .Q8H IRA Administration Piperacillin/Tazobactam/Dextrose 3.375 gm in 50 mls @ 100 mls/hr 08/19/22 03:00 08/20/22 02:03 Zosyn 3.375 Gm/D5w 50ml Pm IVPB 100 mls/hr Q6H IRA Administration Morphine Sulfate 4 mg 08/19/22 01:53 08/20/22 06:30 Morphine Sulfate (*Crx) 4 Mg/Ml Inj IV PUSH 4 mg Q4H PRN Administration Abdominal Distention Ondansetron HCl 4 mg 08/18/22 18:24 08/20/22 06:29 Ondansetron Inj 4 Mg/2 Ml Vial IV PUSH 4 mg Q4H PRN Administration Nausea Promethazine HCl 12.5 mg 08/19/22 10:20 08/19/22 20:46 Promethazine Hcl 25 Mg/Ml Ampul IV PUSH 12.5 mg Q4H PRN Administration Nausea And Vomiting Radiology Results: ITS Impressions Abdomen/Pelvis CT 08/18/22 15:47 IMPRESSION: 1. Large volume of high attenuation ascites, particularly in the deep pelvis, concerning for internal bleeding/hematoma. Surgical evaluation is recommended. These findings and recommendations were discussed with Dr. Sol Latif MD in the Emergency Department at 1555 hours on 08/18/2022. Labs Labs: Laboratory Results - last 24 hr 08/20/22 08/20/22 08/20/22 06:24 06:24 06:24 WBC 13.5 H RBC 3.07 L Hgb 10.6 L Hct 30.9 L MCV 100.7 H MCH 34.5 H MCHC 34.3 RDW 14.9 H Plt Count 250 MPV 11.5 H PT 13.6 INR 1.1 APTT 30.1 Sodium 134 L Potassium 3.2 L Chloride 103 Carbon Dioxide 29 Anion Gap 2 L BUN 5 L Creatinine 0.60 L Estim Creat Clear Calc 102 Estimated GFR > 60 Glucose 115 H Calcium 8.3 L
[2022-08-20 10:00] VITALS: BP 142/97; PULSE 64; RESP 16; TEMP 36.5; O2SAT 97
[2022-08-20] MEDS: POTASSIUM CHLORIDE 20 MEQ PACKET (FOR LIQUID) 60 MEQ PO (10:18)
[2022-08-20] MEDS: NICOTINE (*PBKC) 21 MG PATCH 1 PATCH TRANSDERM (13:19)
[2022-08-20 14:00] VITALS: BP 170/106; PULSE 71; RESP 16; TEMP 36.5; O2SAT 97
[2022-08-20 14:47] LABS: Potassium 3.4 mmol/L (3.4-5.0)
--- NOTE | 2022-08-20 15:23 | PM.DS ---
DS: Discharge Diagnosis Discharge Diagnosis (1) Post-operative complication: Code(s): T81.9XXA - Unspecified complication of procedure, initial encounter Status: Acute Assessment and Plan: The patient presented to the emergency department for evaluation of ongoing abdominal pain, nausea, daily vomiting, and distension. Labs, imaging, and all reports were personally reviewed. CT showed a large volume of high attenuation ascites in the pelvis concerning for internal bleeding/hematoma. Her hemoglobin and hematocrit are stable since postop day 1 and is unlikely that she is continuing to actively bleed. General surgery consulted and appreciate recommendations. Patient put back on clear liquid diet. Analgesics as needed. Anti-emetics as needed. Monitor H&H (2) Acute blood loss anemia: Code(s): D62 - Acute posthemorrhagic anemia Status: Acute Assessment and Plan: see above Monitor H&H (3) Hypokalemia: Code(s): E87.6 - Hypokalemia Status: Acute Assessment and Plan: Patient presented with a potassium of 2.7 in the ED. Replenish K+ as nessessary Continue to monitor Mg stable (4) Elevated LFTs: Code(s): R79.89 - Other specified abnormal findings of blood chemistry Status: Acute Assessment and Plan: Total bilirubin, AST, and alkaline phosphatase are a little elevated but not significantly so. She has a history of hepatitis C and fatty liver disease Monitor these for now. DS: Summary Hospital Course Reason for hospitalization: Nausea vomiting, abdominal pain, postop appendectomy Hospital Course: 37-year-old female who was recently hospitalized due to acute appendicitis and was discharged from hospital on 08/16/2022. patient had appendectomy on 08/14/2022. After patient was discharged she had good pain control for about 1 day and then after that she had developed abdominal pain, poor appetite, nausea and vomiting. Patient having abdominal distension and tenderness in the pelvic region. Patient was taking Vicodin at home that was not helping her pain. Patient not having any fever, chills or body aches. Patient still having bowel movements. In the ED patient's white count was 10.5, hemoglobin 9.2 and potassium 2.7. Patient's potassium was replenished. CT abdomen pelvis showed large volume of high attenuation ascites particularly in the deep pelvis which is concerning for internal bleeding/ hematoma. General surgery consulted in the ED and patient was admitted into observation. Patient's hemoglobin and hematocrit were monitored and they have remained stable since her appendectomy. General surgery did not believe there was concern for a repeat operation at this time. Patient's nausea vomiting were treated with Zofran as needed as well as IV fluids. Patient was put on clear liquid diet and this was advanced as tolerated. Time Spent with Patient Time attestation: Total time spent providing and/or coordinating discharge services: Exam Narrative: GENERAL: Comfortable, no acute distress HENMT: moist mucous membranes EYES: EOM intact b/l NECK: no lymphadenopathy RESPIRATORY: clear to auscultation CARDIO: RRR GI: soft, bowel sounds present, tenderness to palpation although when distracting the patient with conversation she did not wince when her abdomen was lightly and deeply palpated. Surgical incisions healing nicely and no signs of infection. SKIN: no rashes EXTREMITIES: no edema, redness or tenderness DS: Data Data Completed and Pending Labs on day of discharge: Labs from last 24 hours 08/20/22 08/20/22 08/20/22 14:31 06:24 06:24 WBC RBC Hgb Hct MCV MCH MCHC RDW Plt Count MPV PT 13.6 INR 1.1 APTT 30.1 Sodium 134 L Potassium 3.4 3.2 L Chloride 103 Carbon Dioxide 29 Anion Gap 2 L BUN 5 L Creatinine 0.60 L Estim
--- NOTE | 2022-08-20 15:34 | PM.IMPN ---
Progress Note: A&P Assessment and Plan (1) Post-operative complication: Code(s): T81.9XXA - Unspecified complication of procedure, initial encounter Status: Acute Assessment and Plan: The patient presented to the emergency department for evaluation of ongoing abdominal pain, nausea, daily vomiting, and distension. Labs, imaging, and all reports were personally reviewed. CT showed a large volume of high attenuation ascites in the pelvis concerning for internal bleeding/hematoma. Her hemoglobin and hematocrit are stable since postop day 1 and is unlikely that she is continuing to actively bleed. General surgery consulted and appreciate recommendations. Patient put back on clear liquid diet. Analgesics as needed. Anti-emetics as needed. Monitor H&H 08/20/22 Patient still having N/V; states she has had 3 episodes of emesis. Did not tolerate full diet. Will put patient back on clear liquids and advance as tolerated. (2) Acute blood loss anemia: Code(s): D62 - Acute posthemorrhagic anemia Status: Acute Assessment and Plan: see above Monitor H&H (3) Hypokalemia: Code(s): E87.6 - Hypokalemia Status: Acute Assessment and Plan: Patient presented with a potassium of 2.7 in the ED. Replenish K+ as nessessary Continue to monitor Mg stable (4) Elevated LFTs: Code(s): R79.89 - Other specified abnormal findings of blood chemistry Status: Acute Assessment and Plan: Total bilirubin, AST, and alkaline phosphatase are a little elevated but not significantly so. She has a history of hepatitis C and fatty liver disease Monitor these for now. Subjective Date/time seen: 08/20/22 15:34 Interval history: Patient laying in bed resting. She states that she had emesis all throughout the night and did not sleep at all. Her pain and nausea were better this morning but then worsening after she ate lunch. She is still passing gas and having bowel movements. Denies CP, SOB, chills, body aches, and dizziness. She is having scant vaginal bleeding and reassured her that it was nothing to be concerned with and most likely menstrual spotting. Review of Systems Review of Systems: All systems reviewed & are unremarkable except as noted in HPI and below Exam Narrative: GENERAL: Comfortable, no acute distress HENMT: moist mucous membranes EYES: EOM intact b/l NECK: no lymphadenopathy RESPIRATORY: clear to auscultation CARDIO: RRR GI: soft, bowel sounds present, tenderness to palpation although when distracting the patient with conversation she did not wince when her abdomen was lightly and deeply palpated. Surgical incisions healing nicely and no signs of infection. SKIN: no rashes EXTREMITIES: no edema, redness or tenderness Objective Data Vital Signs Vital Signs: Vital Signs - 24 hr 08/19/22 18:30 08/19/22 21:17 08/20/22 05:32 Temperature 98.3 F 97.9 F 97.5 F L Pulse Rate 80 65 67 Respiratory Rate 16 16 20 Blood Pressure 140/93 H 170/110 H 141/98 H Pulse Oximetry 97 97 96 Oxygen Delivery 08/20/22 10:00 08/20/22 09:32 08/20/22 14:00 Temperature 97.7 F 97.7 F Pulse Rate 64 71 Respiratory Rate 16 16 Blood Pressure 142/97 H 170/106 H Pulse Oximetry 97 97 Oxygen Delivery Room Air Intake/Output Intake/Output: Intake & Output 08/17/22 08/18/22 08/19/22 08/20/22 23:59 23:59 23:59 23:59 Intake Total 3680 2640 Output Total 80 Balance 3600 2640 Meds/Results Medications: Active Medications Generic Name Dose Route Start Last Admin Trade Name Freq PRN Reason Stop Dose Admin Acetaminophen 650 mg 08/18/22 22:21 Acetaminophen 325 Mg Tablet PO Q6H PRN Mild Pain (1-3) or Fever Hydrocodone Bitart/Acetaminophen 1 tab 08/18/22 22:21 Hydrocodone/Acetaminophen (*Crx) 5-325 Mg Tablet PO Q6H PRN Pain Rated 4-6 Clonazepam 0.5 mg 08/20/22 17:00
[2022-08-20] MEDS: ESCITALOPRAM OXALATE 10 MG TABLET 20 MG PO (17:26)
[2022-08-20] MEDS: clonazePAM (*CRX) 0.5 MG TABLET PO (17:26)
[2022-08-20 18:00] VITALS: BP 146/89; PULSE 74; RESP 16; TEMP 36.6; O2SAT 95
[2022-08-20] MEDS: HYDROcodone/acetaminophen (*CRX) 5-325 MG TABLET 1 TAB PO (18:32)
--- NOTE | 2022-08-20 19:50 | PC.NURSE ---
Pt left AMA. Pt had episodes of vomiting and had reports of pain throughout the day. Pt experienced bleeding and abdominal cramping. Pt IV was removed and papers were signed. Provider was notified of pt leaving.
== END 2022-08-20 19:00 | disposition left against medical advice (07) | DRG 663 ==
LOC: ANHED 18:38 → ANH3MEDSUR 20:14
PROVIDERS: Internal Medicine Critical Care Medicine; Physician Assistant; Surgery; Admitting Provider Family Medicine; Emergency Provider Emergency Medicine; Visit Provider Family Medicine
DX: D62 Acute posthemorrhagic anemia (principal); E87.8 Other disorders of electrolyte and fluid balance, not elsewhere classified; R18.8 Other ascites; K70.0 Alcoholic fatty liver; E87.6 Hypokalemia; R79.89 Other specified abnormal findings of blood chemistry; Z53.29 Procedure and treatment not carried out because of patient's decision for other reasons; F10.10 Alcohol abuse, uncomplicated; R11.2 Nausea with vomiting, unspecified; R19.7 Diarrhea, unspecified; F41.9 Anxiety disorder, unspecified; F32.A Depression, unspecified; F60.3 Borderline personality disorder; F17.210 Nicotine dependence, cigarettes, uncomplicated; F19.90 Other psychoactive substance use, unspecified, uncomplicated; Z87.19 Personal history of other diseases of the digestive system; Z86.19 Personal history of other infectious and parasitic diseases; Z90.89 Acquired absence of other organs; Z79.899 Other long term (current) drug therapy; Z90.49 Acquired absence of other specified parts of digestive tract
CPT/HCPCS: 36415; 74177; 80048; 80053; 83690; 83735; 84132; 85014; 85018; 85025; 85027; 85610; 85730; 86850; 86900; 86901; 96361; 96365; 96366; 96374; 96375; 96376; 99285; A9270; G0378; G0379; J1170; J2060; J2270; J2405; J2543; J2550; J3480; J7030; J7040; J7120; Q9967

== ENCOUNTER 2022-10-12 16:45 | Emergency (ER) | payer MEDICAID, SELFPAY ==
[2022-10-12 17:04] VITALS: BP 129/94; PULSE 71; RESP 18; TEMP 36.9; O2SAT 98
--- NOTE | 2022-10-12 17:37 | ED.URI ---
HPI - URI/Sore Throat General Chief Complaint: Upper Respiratory Infection Stated Complaint: Cough/Sore Throat Time Seen by Provider: 10/12/22 17:11 Source: patient and RN notes reviewed Mode of arrival: ambulatory Limitations: no limitations History of Present Illness HPI Narrative: Patient presents today complaining of a 3-4 day history of cough that is worse today with sore throat that is dry and itchy, rhinorrhea, fatigue, mild wheezing that started today. She has been using cough drops with mild relief. Denies any history of asthma or seasonal allergies. Smokes 1 pack per day. Related Data Home Medications Medication Instructions Recorded Confirmed clonazepam 0.5 mg tablet 0.5 mg PO BID 01/19/20 10/12/22 escitalopram oxalate 20 mg tablet 20 mg PO DAILY 11/14/20 10/12/22 quetiapine 100 mg tablet 100 mg PO HS 12/08/21 10/12/22 buprenorphine 12 mg-naloxone 3 mg See Rx Instructions .Route .COMPLEX 10/12/22 10/12/22 sublingual film (Suboxone) Allergies Allergy/AdvReac Type Severity Reaction Status Date / Time prochlorperazine Allergy Intermediate Swelling Verified 10/12/22 17:10 trazodone Allergy Intermediate legs seize Verified 10/12/22 17:10 up haloperidol [From Haldol] Allergy Swelling Verified 10/12/22 17:10 of Lip/Tongue/Throat propofol AdvReac Severe Vomiting Verified 10/12/22 17:10 Review of Systems Review of Systems: CONSTITUTIONAL: Denies body aches, fever, chills, or sweats.+ fatigue EYES: Denies visual changes, redness, or discharge. ENT: Denies congestion, or otalgia.+ sore, dry, scratchy throat, rhinorrhea CARDIOVASCULAR: Denies chest pain, palpitations, or edema. RESPIRATORY: Denies dyspnea.+ cough and wheezing GASTROINTESTINAL: Denies abdominal pain, nausea, vomiting, or diarrhea. GENITOURINARY: Denies dysuria or hematuria. SKIN: Denies rash, itching, or wounds. MUSCULOSKELETAL: Denies back pain, joint pain, or myalgia. NEUROLOGIC: Denies headache, numbness, tingling, or weakness. PSYCH: Denies depression or anxiety. [facility] Past Medical History Medical History Alcohol abuse Anxiety and depression Borderline personality disorder Bronchitis C. difficile colitis Fatty liver due to alcoholism Hepatitis C Nicotine dependence Surgical History Surgical History History of laparoscopic appendectomy (08/14/22) Family History Family History Grandparent Skin cancer Hypertension Grandparent Thyroid cancer Diabetes mellitus Grandparent Breast cancer Father Acute myocardial infarction Hypertension Mother Epilepsy Colon cancer Pt believes mother had colon cancer Hypertension Social History Social History Social History: Surrogate decision maker: Stacy Herrera, grandmother. Code status: Full code. Smoking packs per day: 1 Smoking cigarettes per day: 20.0 Years smoked: 25 Smoking pack-years: 25.00 Smoking status: Heavy tobacco smoker Tobacco type: cigarettes Alcohol intake: former Drinks per week: 14 Alcohol use details: 1-2 twisted tea after work everynight Substance use: former Substance use type: IV drugs and prescription drug Other substance usage details: clonazepam, seroquel, lexapro; reports IV drug use in the past 15 years ago Lack of Transportation: No Lack of Food: Sometimes True Current Housing: I Have Housing Concerned About Future Housing: No Difficulty Paying Gas/Electric Bills: No Difficulty Paying for Meds: YES Currently Unemployed: No Education: High School Diploma/GED Difficulty w/ Childcare or Family Care: No Spiritual care concerns: No Comments At time of signature, I have reviewed and agree with nursing past medical, surgical, social and fami
== END 2022-10-12 17:47 | disposition home or self-care (01) ==
PROVIDERS: Emergency Provider Nurse Practitioner
DX: J30.2 Other seasonal allergic rhinitis (principal); F17.210 Nicotine dependence, cigarettes, uncomplicated; F41.9 Anxiety disorder, unspecified; F32.A Depression, unspecified; K70.0 Alcoholic fatty liver; Z86.19 Personal history of other infectious and parasitic diseases
CPT/HCPCS: 87081; 87880; 99213; G0463